=== PATIENT | male | born 1945 | race Caucasian/White ===

== ENCOUNTER 2016-11-07 09:34 | Outpatient (CLI) | payer MEDICARE | END 2016-11-07 09:35 | disposition home or self-care (01) | DX: E11.9 Type 2 diabetes mellitus without complications (principal); E78.9 Disorder of lipoprotein metabolism, unspecified; I10 Essential (primary) hypertension ==

== ENCOUNTER 2016-11-22 09:17 | Outpatient (CLI) | payer MEDICARE | END 2016-11-22 09:18 | disposition home or self-care (01) | DX: G47.33 Obstructive sleep apnea (adult) (pediatric) (principal) | CPT/HCPCS: 99213; G0463 ==

== ENCOUNTER 2017-05-15 08:00 | Outpatient (CLI) | payer MEDICARE ==
[2017-05-15 15:01] LABS: HEMOGLOBIN A1C 0.88 g/dL
[2017-05-15 17:02] LABS: ALBUMIN/GLOBULIN RATIO 1.5 (1.0-2.2); BILIRUBIN,TOTAL 0.8 mg/dL (0.2-1.0); BUN - BLOOD UREA NITROGEN 16 mg/dL (6-20); CALCIUM 9.6 mg/dL (8.5-10.3); CARBON DIOXIDE - CO2 26 mmol/L (21-32); CHLORIDE 104 mmol/L (101-111); CHOL/HDL RATIO 3.2 (<5.0); CHOLESTEROL 175 mg/dL; CREATININE 1.1 mg/dL (0.6-1.2); GFR - MDRD 66 (>89); GLUCOSE 164 mg/dL (70-100); HDL CHOLESTEROL 54 mg/dL; LDL/HDL RATIO 1.8 (<3.6); POTASSIUM 3.7 mmol/L (3.5-5.0); SODIUM 138 mmol/L (135-145); TOTAL PROTEIN 7.2 g/dL (6.7-8.2); TRIGLYCERIDES 129 mg/dL; VLDL CHOLESTEROL 26 mg/dL
== END 2017-05-15 23:59 | disposition home or self-care (01) ==
LOC: LAB.WCP 08:00
PROVIDERS: ATTEND Family Medicine
DX: E11.9 Type 2 diabetes mellitus without complications (principal); E78.9 Disorder of lipoprotein metabolism, unspecified; I10 Essential (primary) hypertension; Z12.5 Encounter for screening for malignant neoplasm of prostate
CPT/HCPCS: 36415; 80053; 80061; 82043; 83036; G0103; 84153

== ENCOUNTER 2017-08-07 08:00 | Outpatient (CLI) | payer MEDICARE ==
[2017-08-07 20:21] LABS: HEMOGLOBIN A1C 0.83 g/dL
== END 2017-08-07 08:01 | disposition home or self-care (01) ==
LOC: LAB.WCP 08:00
PROVIDERS: ATTEND Family Medicine
DX: E11.9 Type 2 diabetes mellitus without complications (principal); N52.9 Male erectile dysfunction, unspecified
CPT/HCPCS: 36415; 83036; 84403

== ENCOUNTER 2017-09-01 08:18 | Outpatient (CLI) | payer MEDICARE ==
--- NOTE | 2017-09-01 12:11 | Ultrasound Report ---
DATE OF SERVICE: 09/01/2017 AORTA ULTRASOUND AND IVC ULTRASOUND: 09/01/2017 INDICATION: Family history of abdominal aortic aneurysm. COMPARISON: Thoracic CT of 11/26/2015. TECHNIQUE: Duplex ultrasound of the abdominal aorta and IVC. FINDINGS: There are small, hard and soft plaques of the aorta. Aorta measurements: Proximal 2.7 cm. Mid 2.0 x 2.1 cm. Distal 2.2 x 2.0 cm. Right iliac artery 9 mm. Left iliac artery 1 cm. Peak systolic velocities in cm per second. Proximal aorta 85. Mid aorta 109. Distal aorta 114. Right common iliac artery 219. Left common iliac artery 196. The inferior vena cava has a grossly unremarkable appearance. IMPRESSION: 1. NO EVIDENCE OF ABDOMINAL AORTIC ANEURYSM. 2. SOMEWHAT INCREASED VELOCITIES OF THE COMMON ILIAC ARTERIES, NONSPECIFIC, BUT LIKELY REPRESENTS SOME DEGREE OF STENOSIS. TD: 09/01/2017 12:45 MTDD
== END 2017-09-01 08:19 | disposition home or self-care (01) ==
LOC: DI 08:18
PROVIDERS: ATTEND Family Medicine
DX: Z82.49 Family history of ischemic heart disease and other diseases of the circulatory system (principal)
CPT/HCPCS: 93978

== ENCOUNTER 2017-09-12 14:25 | Outpatient (CLI) | payer MEDICARE | END 2017-09-12 14:26 | disposition home or self-care (01) | LOC: LAB.WCP 14:25 | PROVIDERS: ATTEND Family Medicine | DX: N52.9 Male erectile dysfunction, unspecified (principal) | CPT/HCPCS: 36415; 84403 ==

== ENCOUNTER 2017-10-23 08:00 | Outpatient (CLI) | payer MEDICARE | END 2017-10-23 08:01 | disposition home or self-care (01) | LOC: LAB.WCP 08:00 | PROVIDERS: ATTEND Family Medicine | DX: N52.9 Male erectile dysfunction, unspecified (principal) | CPT/HCPCS: 36415; 84403 ==

== ENCOUNTER 2017-11-22 13:42 | Outpatient (CLI) | payer MEDICARE | END 2017-11-22 13:43 | disposition home or self-care (01) | LOC: SC 13:42 | PROVIDERS: ATTEND Nurse Practitioner Family | DX: G47.33 Obstructive sleep apnea (adult) (pediatric) (principal) | CPT/HCPCS: 99214; G0463; 99212 ==

== ENCOUNTER 2018-01-30 08:00 | Outpatient (CLI) | payer MEDICARE ==
[2018-01-30 13:15] LABS: ALBUMIN 3.8 g/dL (3.2-5.5); ALBUMIN/GLOBULIN RATIO 1.1 (1.0-2.2); ALKALINE PHOSPHATASE 47 IU/L (42-121); ALT ALANINE AMINOTRANSFERASE 39 IU/L (10-60); AST ASPARTATE AMINOTRANSFERASE 35 IU/L (10-42); BILIRUBIN,TOTAL 1.1 mg/dL (0.2-1.0); BUN - BLOOD UREA NITROGEN 13 mg/dL (6-20); CALCIUM 9.3 mg/dL (8.5-10.3); CARBON DIOXIDE - CO2 26 mmol/L (21-32); CHLORIDE 102 mmol/L (101-111); CHOL/HDL RATIO 3.8 (<5.0); CHOLESTEROL 137 mg/dL; CREATININE 1.3 mg/dL (0.6-1.2); GFR - MDRD 54 (>89); GLUCOSE 156 mg/dL (70-100); HDL CHOLESTEROL 36 mg/dL; LDL CHOLESTEROL,CALCULATED 54 mg/dL; LDL/HDL RATIO 1.5 (<3.6); SODIUM 135 mmol/L (135-145); TOTAL PROTEIN 7.2 g/dL (6.7-8.2); VLDL CHOLESTEROL 47 mg/dL
[2018-01-30 13:35] LABS: PSA FREE 0.696 ng/mL (0.16-2.81)
[2018-01-30 13:36] LABS: PSA TOTAL 3.7 ng/mL (0.000-2.000)
== END 2018-01-30 08:01 | disposition home or self-care (01) ==
LOC: LAB.WCP 08:00
PROVIDERS: ATTEND Family Medicine
DX: E29.1 Testicular hypofunction (principal); F41.8 Other specified anxiety disorders; E11.9 Type 2 diabetes mellitus without complications; E78.9 Disorder of lipoprotein metabolism, unspecified; I10 Essential (primary) hypertension; Z79.899 Other long term (current) drug therapy
CPT/HCPCS: 36415; 80053; 80061; 83721; 84154

== ENCOUNTER 2018-02-07 16:09 | Outpatient (CLI) | payer MEDICARE ==
[2018-02-07 19:51] LABS: HB2 TOTAL 16.9 g/dL; HEMOGLOBIN A1C 1.06 g/dL; HEMOGLOBIN A1C % 7.9 % (4.6-6.2)
== END 2018-02-07 16:10 | disposition home or self-care (01) ==
LOC: LAB.WCP 16:09
PROVIDERS: ATTEND Family Medicine
DX: E11.9 Type 2 diabetes mellitus without complications (principal)
CPT/HCPCS: 36415; 83036

== ENCOUNTER 2018-05-30 10:57 | Outpatient (CLI) | payer MEDICARE ==
[2018-05-30 18:57] LABS: CALCIUM 9.9 mg/dL (8.5-10.3); CREATININE 1.3 mg/dL (0.6-1.2)
[2018-05-30 19:07] LABS: HB2 TOTAL 18.8 g/dL; HEMOGLOBIN A1C 0.88 g/dL; HEMOGLOBIN A1C % 6.4 % (4.6-6.2)
== END 2018-05-30 10:58 | disposition home or self-care (01) ==
LOC: LAB.WCP 10:57
PROVIDERS: ATTEND Family Medicine
DX: E11.9 Type 2 diabetes mellitus without complications (principal); I10 Essential (primary) hypertension; E29.1 Testicular hypofunction; N52.9 Male erectile dysfunction, unspecified
CPT/HCPCS: 36415; 80048; 83036; 84403

== ENCOUNTER 2018-07-02 18:29 | Emergency (ER) | payer MEDICARE ==
--- NOTE | 2018-07-02 19:45 | ED Physician Documentation ---
History of Present Illness - Stated complaint Stated Complaint: OD INSULIN - Chief complaint Chief Complaint: General - History obtained from History obtained from: Patient, Family - History of Present Illness Timing: How many hours ago (2) Pain level max: 0 Pain level now: 0 Improved by: eating Worsened by: taking insulin - Additonal information Additional information: Patient states he accidentally took 48 units of Humalog instead of 48 units of Lantus. This was approximately 5-530 tonight. He ate afterwards. Currently asymptomatic. Review of Systems Constitutional: denies: Fever, Chills Cardiac: denies: Chest pain / pressure Respiratory: denies: Cough GI: denies: Vomiting, Diarrhea Skin: denies: Rash Musculoskeletal: denies: Neck pain, Back pain PD PAST MEDICAL HISTORY - Past Medical History Past Medical History: Yes Cardiovascular: Hypertension, High cholesterol Respiratory: COPD Neuro: None Endocrine/Autoimmune: Type 2 diabetes GI: GERD : None HEENT: None Psych: None Musculoskeletal: Osteoarthritis Derm: None - Past Surgical History Past Surgical History: Yes General: Appendectomy, Colonoscopy - Present Medications Home Medications: Ambulatory Orders Medication Instructions Recorded Confirmed Albuterol Sulfate 0.83 mg IH Q4H PRN 05/27/13 05/01/18 Aspirin [Aspir 81] 81 mg PO DAILY 05/27/13 05/01/18 Beclomethasone 40 Mcg [Qvar 40] 80 mcg INH BID 05/27/13 05/01/18 Metformin HCl [Glucophage] 500 mg PO BID 05/27/13 05/01/18 Simvastatin 40 mg PO QPM 05/27/13 05/01/18 Ascorbic Acid [Vitamin C] 500 mg PO DAILY 05/01/18 05/01/18 Beta Carotene 6,250 intlu PO DAILY 05/01/18 05/01/18 Garlic 1,000 mg PO DAILY 05/01/18 05/01/18 Insulin Glargine [Lantus Solostar] 48 unit SUBQ DAILY 05/01/18 05/01/18 Insulin Lispro [Humalog Kwikpen 10 unit SUBQ QDDINNER 05/01/18 05/01/18 U-100] Iron,Carbonyl [Iron Chews] 18 mg PO DAILY 05/01/18 05/01/18 Losartan Potassium 100 mg PO DAILY 05/01/18 05/01/18 Multivitamin [Multiple Vitamins] 1 each PO DAILY 05/01/18 05/01/18 [place]-3/Dha/Epa/Fish Oil [Fish Oil 1 each PO DAILY 05/01/18 05/01/18 500 mg Softgel] Salmeterol Xinafoate [Serevent 50 mcg IH BID 05/01/18 05/01/18 Diskus] Testosterone Cypionate 200 mg IM Q15D 05/01/18 05/01/18 Tiotropium [place] [Spiriva] 18 mcg IH DAILY 05/01/18 05/01/18 Vitamin E (Dl,Tocopheryl Acet) 200 unit PO DAILY 05/01/18 05/01/18 [Vitamin E] Zinc 22.5 mg PO DAILY 05/01/18 05/01/18 - Allergies Allergies/Adverse Reactions: Allergies Allergy/AdvReac Type Severity Reaction Status Date / Time No Known Drug Allergies Allergy Verified 05/27/13 08:41 - Social History Does the pt smoke?: No Smoking Status: Never smoker Does the pt drink ETOH?: Yes ETOH Use: Wine, Beer, Liquor Does the pt have substance abuse?: No - Immunizations Immunizations are current?: Yes - POLST Patient has POLST: No PD ED PE NORMAL - Vitals Vital signs reviewed: Yes - General General: Alert and oriented X 3, No acute distress - HEENT HEENT: Moist mucous membranes - Neck Neck: Supple, no meningeal sign - Cardiac Cardiac: RRR - Respiratory Respiratory: No respiratory distress, Clear bilaterally - Derm Derm: Warm and dry - Neuro Neuro: Alert and oriented X 3 Results - Vitals Vitals: Vital Signs - 24 hr 07/02/18 07/02/18 18:37 20:41 Temperature 36.3 C L 36.7 C Heart Rate 77 73 Respiratory 14 18 Rate Blood Pressure 154/57 H 154/88 H O2 Saturation 96 94 Oxygen O2 Source Room air - Labs Labs: Laboratory Tests 07/02/18 07/02/18 07/02/18 18:37 19:39 20:39 POC Whole Bld Glucose 186 H 229 H 216 H PD MEDICAL DECISION MAKING - ED course Complexity details: reviewed results, re-evaluated patient, considered differential, d/w patient, d/w family ED course: Patient is a 72-year-old male with an accidental Humalog today. Observed for greater than 3 hours after the incident with no hypoglycemia. We will have him decrease his insulin tonight of the Lantus and follow-up with his doctor. Patient counseled regarding signs and symptoms for which I believe and urgent re-evaluation would be necessary. Patient with good understanding of and agreement to plan and is comfortable going home at this time This document was made in part using voice recognition software. While efforts are made to proofread this document, sound alike and grammatical errors may occur. will be at home with him tonight Departure - Departure Disposition: Home, Self Care Clinical Impression: Insulin overdose Qualifiers: Encounter type: initial encounter Injury intent: accidental or unintentional Qualified Code(s): T38.3X1A - Poisoning by insulin and oral hypoglycemic [antidiabetic] drugs, accidental (unintentional), initial encounter Condition: Good Instructions: ED Overdose Accidental Follow-Up: Navdeep Payne MD [Primary Care Provider] - Within 1 week Comments: Return if you worsen. Someone should stay with you tonight. Decrease your lantus to 30 units tonight Discharge Date/Time: 07/02/18 20:45
[2018-07-02 20:41] VITALS: BP 154/88
== END 2018-07-02 20:45 | disposition home or self-care (01) ==
LOC: ED 18:29
DX: T38.3X1A Poisoning by insulin and oral hypoglycemic [antidiabetic] drugs, accidental (unintentional), initial encounter (principal); I10 Essential (primary) hypertension; E11.9 Type 2 diabetes mellitus without complications; Z79.4 Long term (current) use of insulin; Z79.82 Long term (current) use of aspirin
CPT/HCPCS: 99283

== ENCOUNTER 2018-08-09 11:37 | Day surgery (SDC) | payer MEDICARE ==
--- NOTE | 2018-08-09 12:10 | ANESTHESIA ---
Pre-Anesthesia VS, & Labs <Yuridia Granda - Last Filed: 08/09/18 12:08> - NPO >8 hours Last Fluid Intake: 0940 CL <Ely Muro - Last Filed: 08/09/18 13:00> - Diagnosis History of colon polyps (Yuridia Granda) History of colon polyps (Ely Muro) - Procedure colonoscopy (Yuridia Granda) colonoscopy (Ely Muro) Vital Signs: Temp Pulse Resp BP Pulse Ox 36.2 C L 55 L 16 150/80 H 95 08/09/18 12:02 08/09/18 12:02 08/09/18 12:02 08/09/18 12:02 08/09/18 12:02 Height 5 ft 10 in Weight (kg) 98.3 kg Body Mass Index 30.2 - Lab Results Current Lab Results: Laboratory Tests 08/09/18 12:04: POC Whole Bld Glucose 121 H Home Medications and Allergies <Yuridia Granda - Last Filed: 08/09/18 12:08> <Ely Muro - Last Filed: 08/09/18 13:00> Home Medications: Ambulatory Orders Hydrochlorothiazide 12.5 mg PO DAILY 08/08/18 Metoprolol Succinate 150 mg PO DAILY 08/08/18 Aspirin [Aspir 81] 81 mg PO DAILY 05/27/13 Metformin HCl [Glucophage] 500 mg PO BID 05/27/13 Simvastatin 40 mg PO QPM 05/27/13 Ascorbic Acid [Vitamin C] 500 mg PO DAILY 05/01/18 Beta Carotene 6,250 intlu PO DAILY 05/01/18 Garlic 1,000 mg PO DAILY 05/01/18 Insulin Glargine [Lantus Solostar] 48 unit SUBQ DAILY 05/01/18 Insulin Lispro [Humalog Kwikpen U-100] 10 unit SUBQ QDDINNER 05/01/18 Iron,Carbonyl [Iron Chews] 18 mg PO DAILY 05/01/18 Losartan Potassium 100 mg PO DAILY 05/01/18 Multivitamin [Multiple Vitamins] 1 each PO DAILY 05/01/18 [place]-3/Dha/Epa/Fish Oil [Fish Oil 500 mg Softgel] 1 each PO DAILY 05/01/18 Testosterone Cypionate 200 mg IM Q15D 05/01/18 Tiotropium [place] [Spiriva] 18 mcg IH DAILY 05/01/18 Vitamin E (Dl,Tocopheryl Acet) [Vitamin E] 200 unit PO DAILY 05/01/18 Zinc 22.5 mg PO DAILY 05/01/18 Hydrochlorothiazide 12.5 mg PO DAILY 08/08/18 Metoprolol Succinate 150 mg PO DAILY 08/08/18 Allergies/Adverse Reactions: Allergies Allergy/AdvReac Type Severity Reaction Status Date / Time No Known Drug Allergies Allergy Verified 05/27/13 08:41 Anes History & Medical History - Medical History Cardiovascular: reports: Hypertension, High cholesterol Pulmonary: reports: COPD, Sleep apnea, CPAP use Gastrointestinal: reports: Colon polyps Urinary: reports: None Neuro: reports: None Musculoskeletal: reports: Osteoarthritis Endocrine/Autoimmune: reports: Type 2 diabetes Blood Disorders: reports: None Smoking Status: Never smoker Psychosocial: reports: Alcohol (Glass of wine or cocktail every night) - Surgical History General: Appendectomy, Colonoscopy Eyes Ears Nose Throat (EENT): Cataracts <Yuridia Granda Last Filed: 08/09/18 12:08> - Anesthetic History Anesthesia Complications: reports: No previous complications <Ely Muro - Last Filed: 08/09/18 13:00> Exam General: Alert, Oriented x3, Cooperative, No acute distress Dental: WNL Mouth Openin Fingerbreadth Neck Mobility: Normal Mallampati classification: III Thyromental Distance: 4-6 cm Respiratory: Lungs clear, Normal breath sounds, No respiratory distress, No accessory muscle use Cardiovascular: Regular rate, Normal S1, Normal S2, No murmurs Mental/Cognitive Status: Alert/Oriented X3, Normal for patient <Ely Muro - Last Filed: 08/09/18 13:00> Plan Anesthesia Type: MAC Consent for Procedure(s) Verified and Reviewed: Yes Code Status: Attempt Resuscitation ASA classification: 3-Severe systemic disease Is this case an emergency?: No <Yuridia Granda Last Filed: 08/09/18 12:08>
[2018-08-09] MEDS ORDERED: LACTATED RINGERS 1,000 ML IV ONE (12:19)
[2018-08-09] MEDS ORDERED: PROPOFOL 200 MG/20 ML VIAL IVP ONE (13:56)
[2018-08-09 14:19] VITALS: BP 129/57
== END 2018-08-09 11:38 | disposition home or self-care (01) ==
LOC: SDS 11:37
PROVIDERS: ATTEND Internal Medicine Gastroenterology
PROC: 0DBL8ZZ Excision of Transverse Colon, Via Natural or Artificial Opening Endoscopic (ICD-10-PCS; 2018-08-09)
PROC: 0DBM8ZZ Excision of Descending Colon, Via Natural or Artificial Opening Endoscopic (ICD-10-PCS; 2018-08-09)
PROC: 0DBM8ZZ Excision of Descending Colon, Via Natural or Artificial Opening Endoscopic (ICD-10-PCS; principal; 2018-08-09 12:45)
DX: Z12.11 Encounter for screening for malignant neoplasm of colon (principal); D12.4 Benign neoplasm of descending colon; D12.3 Benign neoplasm of transverse colon; K57.30 Diverticulosis of large intestine without perforation or abscess without bleeding; G47.30 Sleep apnea, unspecified; E11.9 Type 2 diabetes mellitus without complications; Z79.4 Long term (current) use of insulin; E78.5 Hyperlipidemia, unspecified; J44.9 Chronic obstructive pulmonary disease, unspecified; Z87.891 Personal history of nicotine dependence; E66.9 Obesity, unspecified; Z68.31 Body mass index [BMI] 31.0-31.9, adult; I10 Essential (primary) hypertension
CPT/HCPCS: 45380; 45385; J7120

== ENCOUNTER 2018-11-27 09:17 | Outpatient (CLI) | payer MEDICARE ==
[2018-11-27 12:56] LABS: PSA FREE 0.96 ng/mL (0.16-2.81)
[2018-11-27 12:57] LABS: HB2 TOTAL 18.9 g/dL; HEMOGLOBIN A1C 0.75 g/dL; HEMOGLOBIN A1C % 5.8 % (4.6-6.2); PSA TOTAL 3.15 ng/mL (0.000-2.000)
[2018-11-27 13:05] LABS: ALBUMIN 4.3 g/dL (3.2-5.5); ALBUMIN/GLOBULIN RATIO 1.4 (1.0-2.2); ALKALINE PHOSPHATASE 43 IU/L (42-121); ALT ALANINE AMINOTRANSFERASE 48 IU/L (10-60); AST ASPARTATE AMINOTRANSFERASE 42 IU/L (10-42); BILIRUBIN,TOTAL 0.9 mg/dL (0.2-1.0); BUN - BLOOD UREA NITROGEN 18 mg/dL (6-20); CALCIUM 9.9 mg/dL (8.5-10.3); CARBON DIOXIDE - CO2 28 mmol/L (21-32); CHLORIDE 102 mmol/L (101-111); CHOL/HDL RATIO 4.1 (<5.0); CHOLESTEROL 147 mg/dL; CREATININE 1.4 mg/dL (0.6-1.2); GFR - MDRD 50 (>89); GLUCOSE 83 mg/dL (70-100); HDL CHOLESTEROL 36 mg/dL; LDL CHOLESTEROL,CALCULATED 73 mg/dL; SODIUM 138 mmol/L (135-145); TOTAL PROTEIN 7.4 g/dL (6.7-8.2); VLDL CHOLESTEROL 38 mg/dL
== END 2018-11-27 23:59 | disposition home or self-care (01) ==
LOC: LAB.WCP 09:17
PROVIDERS: ATTEND Family Medicine
DX: E78.5 Hyperlipidemia, unspecified (principal); I10 Essential (primary) hypertension; E11.9 Type 2 diabetes mellitus without complications; R97.20 Elevated prostate specific antigen [PSA]; E29.1 Testicular hypofunction
CPT/HCPCS: 36415; 80053; 80061; 83036; 83721; 84153; 84154; 84403

== ENCOUNTER 2018-11-28 10:16 | Outpatient (CLI) | payer MEDICARE | END 2018-11-28 10:17 | disposition home or self-care (01) | LOC: SC 10:16 | PROVIDERS: ATTEND Nurse Practitioner Family | DX: G47.33 Obstructive sleep apnea (adult) (pediatric) (principal) | CPT/HCPCS: 99214; G0463; 99212 ==

== ENCOUNTER 2018-12-14 15:50 | Outpatient (CLI) | payer MEDICARE ==
--- NOTE | 2018-12-16 08:24 | XRAY Report ---
Reason: FINGER PAIN,RIGHT, OSTEOARTHRITIS,KNEE Procedure Date: 12/14/2018 Accession Number: [id number] / [id number] Procedure: WCP - Finger(s) RT CPT Code: FULL RESULT: EXAM: RIGHT SECOND DIGIT RADIOGRAPHY EXAM DATE: 12/14/2018 04:02 PM. CLINICAL HISTORY: FINGER PAIN,RIGHT, OSTEOARTHRITIS,KNEE. COMPARISON: None. TECHNIQUE: 3 views. FINDINGS: Bones: Normal. No fracture or bone lesion. Joints: No subluxation. Mild right second DIP joint space narrowing. Soft Tissues: Mild right second finger soft tissue swelling noted. No radiopaque foreign bodies are noted. IMPRESSION: 1. No fracture or malalignment. 2. Mild right second DIP joint arthritis. 3. Mild right second finger swelling. RADIA
--- NOTE | 2018-12-16 08:30 | XRAY Report ---
Reason: FINGER PAIN,RIGHT, OSTEOARTHRITIS,KNEE Procedure Date: 12/14/2018 Accession Number: [id number] / [id number] Procedure: WCP - Knee 3 View LT CPT Code: FULL RESULT: EXAM: LEFT KNEE RADIOGRAPHY EXAM DATE: 12/14/2018 04:02 PM. CLINICAL HISTORY: FINGER PAIN,RIGHT, OSTEOARTHRITIS,KNEE. COMPARISON: 04/15/2013. TECHNIQUE: 3 views. FINDINGS: Bones: Normal. No fractures or bone lesions. Joints: Moderate medial compartment narrowing, osteophytosis, and subchondral sclerosis. Mild patellofemoral compartment narrowing, osteophytosis, and subchondral sclerosis. Mild lateral compartment narrowing, osteophytosis, and subchondral sclerosis. No effusions. Normal alignment. Soft Tissues: Normal. No soft tissue swelling. IMPRESSION: 1. No fracture or malalignment. 2. No knee joint effusion. 3. If patient remains symptomatic, recommend radiographs in 10-14 days. 4. Moderate left medial and mild left lateral and patellofemoral compartment arthritis. Kellgren Rodriguez Grade 3. Kellgren and Rodriguez classification of osteoarthritis: Grade 0: no radiographic features of osteoarthritis are present Grade 1: doubtful joint space narrowing (JSN) and possible osteophytic lipping Grade 2: definite osteophytes and possible JSN on anteroposterior weight-bearing radiograph Grade 3: multiple osteophytes, definite JSN, sclerosis, possible bony deformity Grade 4: large osteophytes, marked JSN, severe sclerosis and definite bony deformity RADIA
== END 2018-12-14 15:51 | disposition home or self-care (01) ==
LOC: DI.WCP 15:50
PROVIDERS: ATTEND Family Medicine
DX: M19.041 Primary osteoarthritis, right hand (principal); M17.12 Unilateral primary osteoarthritis, left knee
CPT/HCPCS: 73140

== ENCOUNTER 2019-01-16 11:06 | Outpatient (CLI) | payer MEDICARE | END 2019-01-16 11:07 | disposition home or self-care (01) | LOC: SC 11:06 | PROVIDERS: ATTEND Nurse Practitioner Family | DX: G47.33 Obstructive sleep apnea (adult) (pediatric) (principal) | CPT/HCPCS: 99213; G0463; 99212 ==

== ENCOUNTER 2019-01-24 08:00 | Outpatient (CLI) | payer MEDICARE ==
[2019-01-24 19:01] LABS: ALBUMIN 4.1 g/dL (3.2-5.5); ALBUMIN/GLOBULIN RATIO 1.4 (1.0-2.2); BILIRUBIN,TOTAL 0.6 mg/dL (0.2-1.0); CALCIUM 9.6 mg/dL (8.5-10.3); CREATININE 1.3 mg/dL (0.6-1.2)
[2019-01-24 19:44] LABS: PSA FREE 1.05 ng/mL (0.16-2.81)
[2019-01-24 19:45] LABS: PSA TOTAL 3.16 ng/mL (0.000-2.000)
== END 2019-01-24 23:59 | disposition home or self-care (01) ==
LOC: LAB.WCP 08:00
PROVIDERS: ATTEND Family Medicine
DX: E29.1 Testicular hypofunction (principal); R97.20 Elevated prostate specific antigen [PSA]
CPT/HCPCS: 36415; 80053; 84153; 84154; 84403

== ENCOUNTER 2019-05-21 08:00 | Outpatient (CLI) | payer MEDICARE ==
[2019-05-21 12:23] LABS: BUN - BLOOD UREA NITROGEN 17 mg/dL (6-20); CALCIUM 9.4 mg/dL (8.5-10.3); CARBON DIOXIDE - CO2 29 mmol/L (21-32); CHLORIDE 102 mmol/L (101-111); CHOL/HDL RATIO 4.5 (<5.0); CHOLESTEROL 144 mg/dL; CREATININE 1.4 mg/dL (0.6-1.2); GFR - MDRD 50 (>89); GLUCOSE 131 mg/dL (70-100); HDL CHOLESTEROL 32 mg/dL; LDL CHOLESTEROL,CALCULATED 70 mg/dL; LDL/HDL RATIO 2.2 (<3.6); SODIUM 138 mmol/L (135-145); VLDL CHOLESTEROL 42 mg/dL
[2019-05-21 12:24] LABS: CREATININE,URINE 142.3 mg/dL; MICROALBUMIN,URINE 11.1 mg/dL (0-300.0)
[2019-05-21 12:32] LABS: PSA FREE 1.155 ng/mL (0.16-2.81)
[2019-05-21 12:33] LABS: PSA TOTAL 3.777 ng/mL (0.000-2.000)
[2019-05-21 13:02] LABS: HB2 TOTAL 17.1 g/dL; HEMOGLOBIN A1C 0.72 g/dL
== END 2019-05-21 08:01 | disposition home or self-care (01) ==
LOC: LAB.WCP 08:00
PROVIDERS: ATTEND Family Medicine
DX: E78.5 Hyperlipidemia, unspecified (principal); E29.1 Testicular hypofunction; E11.9 Type 2 diabetes mellitus without complications
CPT/HCPCS: 36415; 80048; 80061; 81599; 82043; 82570; 83036; 83721; 84153; 84154; 84402; 84403

== ENCOUNTER 2019-05-24 11:11 | Outpatient (CLI) | payer MEDICARE | END 2019-05-24 11:20 | disposition home or self-care (01) | LOC: LAB.N 11:11 | PROVIDERS: ATTEND Family Medicine | DX: E29.1 Testicular hypofunction (principal) | CPT/HCPCS: 36415; 84403 ==

== ENCOUNTER 2019-09-05 16:14 | Outpatient (CLI) | payer MEDICARE ==
[2019-09-05 16:31] LABS: BASOPHILS # (AUTO) 0.1 10^3/uL (0.0-0.1); BASOPHILS % (AUTO) 0.5 %; EOSINOPHILS # (AUTO) 0.1 10^3/uL (0.0-0.7); EOSINOPHILS % (AUTO) 0.4 %; HGB - HEMOGLOBIN 16.2 g/dL (14.0-18.0); LYMPHOCYTES # (AUTO) 1.6 10^3/uL (1.5-3.5); LYMPHOCYTES % (AUTO) 8.9 %; MEAN CORPUSCULAR HEMOGLOBIN 34.2 pg (27.0-31.0); MEAN CORPUSCULAR VOLUME 97.9 fL (80.0-94.0); MEAN PLATELET VOLUME 10.8 fL (7.4-11.4); MONOCYTES # (AUTO) 1.5 10^3/uL (0.0-1.0); MONOCYTES % (AUTO) 8.4 %; NEUTROPHILS # (AUTO) 14.3 10^3/uL (1.5-6.6); NEUTROPHILS % (AUTO) 81.2 %; PLT - PLATELET COUNT 150 10^3/uL (130-450); RED BLOOD COUNT 4.73 10^6/uL (4.70-6.10); RED CELL DISTRIBUTION WIDTH 13.6 % (12.0-15.0); WHITE BLOOD COUNT 17.6 x10^3/uL (4.8-10.8)
[2019-09-05 16:46] LABS: ALBUMIN 4.2 g/dL (3.2-5.5); ALBUMIN/GLOBULIN RATIO 1.3 (1.0-2.2); BILIRUBIN,TOTAL 1.1 mg/dL (0.2-1.0); CREATININE 1.5 mg/dL (0.6-1.2); TOTAL PROTEIN 7.5 g/dL (6.7-8.2)
--- NOTE | 2019-09-06 08:17 | XRAY Report ---
Reason: FEVER Procedure Date: 09/05/2019 Accession Number: [id number] / [id number] Procedure: XR - Chest 2 View X-Ray CPT Code: 40527 Final Report FULL RESULT: EXAM: CHEST RADIOGRAPHY EXAM DATE: 09/05/2019 04:44 PM. CLINICAL HISTORY: FEVER. COMPARISON: None. TECHNIQUE: 2 views. FINDINGS: Lungs/Pleura: Left basilar atelectasis or infiltrate. No pleural effusion. No pneumothorax. Normal volumes. Mediastinum: Heart and mediastinal contours are unremarkable. Other: DISH spine. IMPRESSION: Left basilar atelectasis or infiltrate. RADIA
== END 2019-09-05 16:15 | disposition home or self-care (01) ==
LOC: LAB 16:14 → DI 16:15
PROVIDERS: ATTEND Family Medicine
DX: R91.8 Other nonspecific abnormal finding of lung field (principal)
CPT/HCPCS: 36415; 71046; 80053; 85025; 87275; 87276

== ENCOUNTER 2019-09-06 13:52 | Outpatient (CLI) | payer MEDICARE | END 2019-09-06 23:59 | disposition home or self-care (01) | LOC: LAB.N 13:52 | PROVIDERS: ATTEND Family Medicine | DX: R39.11 Hesitancy of micturition (principal) | CPT/HCPCS: 36415; 87077; 87086; 87181; G0103; 84153 ==

== ENCOUNTER 2019-11-05 07:00 | Outpatient (CLI) | payer MEDICARE ==
[2019-11-05 11:53] LABS: BASOPHILS # (AUTO) 0.1 10^3/uL (0.0-0.1); BASOPHILS % (AUTO) 0.8 %; EOSINOPHILS # (AUTO) 0.3 10^3/uL (0.0-0.7); EOSINOPHILS % (AUTO) 3.9 %; HGB - HEMOGLOBIN 17.6 g/dL (14.0-18.0); LYMPHOCYTES # (AUTO) 2.1 10^3/uL (1.5-3.5); LYMPHOCYTES % (AUTO) 24.8 %; MEAN CORPUSCULAR HEMOGLOBIN 32.8 pg (27.0-31.0); MEAN CORPUSCULAR VOLUME 96.5 fL (80.0-94.0); MEAN PLATELET VOLUME 11.4 fL (7.4-11.4); MONOCYTES # (AUTO) 0.8 10^3/uL (0.0-1.0); NEUTROPHILS # (AUTO) 5.1 10^3/uL (1.5-6.6); PLT - PLATELET COUNT 165 10^3/uL (130-450); RED BLOOD COUNT 5.36 10^6/uL (4.70-6.10); RED CELL DISTRIBUTION WIDTH 13.8 % (12.0-15.0); WHITE BLOOD COUNT 8.4 x10^3/uL (4.8-10.8)
[2019-11-05 12:11] LABS: ALBUMIN 4.2 g/dL (3.2-5.5); ALBUMIN/GLOBULIN RATIO 1.4 (1.0-2.2); BILIRUBIN,TOTAL 0.6 mg/dL (0.2-1.0); CREATININE 1.4 mg/dL (0.6-1.2); TOTAL PROTEIN 7.2 g/dL (6.7-8.2)
[2019-11-05 12:24] LABS: PSA TOTAL 4.187 ng/mL (0.000-2.000)
[2019-11-05 12:32] LABS: CREATININE,URINE 137.9 mg/dL; PROTEIN/CREATININE RATIO,URINE 0.2 (<=0.2)
[2019-11-05 12:48] LABS: HB2 TOTAL 18.1 g/dL; HEMOGLOBIN A1C 0.74 g/dL; HEMOGLOBIN A1C % 5.9 % (4.6-6.2)
== END 2019-11-05 23:59 | disposition home or self-care (01) ==
LOC: LAB.N 07:00
PROVIDERS: ATTEND Family Medicine
DX: E29.1 Testicular hypofunction (principal); E11.9 Type 2 diabetes mellitus without complications; I10 Essential (primary) hypertension; N40.0 Benign prostatic hyperplasia without lower urinary tract symptoms; N13.8 Other obstructive and reflux uropathy
CPT/HCPCS: 36415; 80053; 82570; 83036; 84153; 84156; 84403; 85025

== ENCOUNTER 2020-01-01 10:03 | Outpatient (CLI) | payer MEDICARE ==
--- NOTE | 2020-01-01 09:55 | SLEEP CARE CONSULTATION ---
Information from patient questionnaire entered by Heydi Garza. I have reviewed and concur with the information entered by Heydi Garza. This document represents the service I personally performed and the decisions made by me, Emilee Dove, RN, MSN, DOCTOR OF AUDIOLOGY. History of Present Illness Service Date and Time: 01/01/2020929 Previous diagnosis: Mild, Obstructive Sleep Apnea-Hypopnea Syndrome AHI: 11.7 Reason for follow up: annual Equipment type: CPAP Equipment obtained from: [employer] (getting supplies as needed) Mask style: Nasal Mask brand: [employer] (Eson) Backup mask available: Yes (old mask ) Last cushion change: a month CPAP Compliance Data - Data Reviewed with Patient Average duration of nightly device use: 8h 2m Compliance rate %: 99.4 Current pressure setting (cmH2O): 7 Humidity settin Heated hose settin Average residual AHI: 0.8 Average large leak: 0s Subjective Patient concerns: reports: dry mouth, nose, throat (sometimes he has dry nose/ he usually has a dry mouth so - uses Xylimelts). denies: aerophagia, mask discomfort, air blowing in eyes, mask leak noise, condensation in mask/hose, nasal congestion, epistaxis Observed to snore while using device: Yes (rare) Current pressure setting perceived as: comfortable On therapy, patient: reports: sleeping better, more rested overall. denies: drowsiness while driving, other Initial [place] Sleepiness Scale score: 8 Physical Exam Height: 5 ft 10 in Impression and Plan 1. Obstructive Sleep Apnea-Hypopnea Syndrome, mild, with good treatment compliance and good apnea control. On CPAP therapy, the patient has better sleep quality and is more rested overall. He states he has never been a morning person and has never felt more refreshed with sleep no matter what he has tried. For intermittent nasal dryness and chronic mild oral dryness, I advised lowering the heated hose to increase moisture with rationale discussed. Verbal instruction given and questions answered. He can check his manual for directions and or call [employer] to walk through process of changing his heated hose setting if needed. His oral dryness is not due to mask leaks as there are none so it appears he only needs to find the right setting of humidity and heated hose for his environment. Patient's apnea severity and rationale for treatment to reduce apnea, improve sleep quality and reduce cardiovascular and cerebrovascular events was reviewed. I also reviewed the benefit of consistent device use of CPAP for hypertension, diabetes. I also discussed how weight can affect his apnea and CPAP pressure requirements and symptoms to report for pressure adjustment. * Continue CPAP pressure at 7 cmH2O * Lower heated hose * Notify me if snoring with mask or feeling that the pressure is too much or too little * Call this office if any problems using CPAP * Return for follow up in 1 year , or sooner if concerns arise Visit Type: Telehealth Phone (to minimize Covid 19 risk exposure) Patient Location: Home Location of Provider: Home Patient agrees and consents to this telehealth visit type: Yes Patient agrees to have their insurance billed: Yes Time Spent with Patient (minutes): 10 Provider Statement: I spent 100% of the Telehealth Phone Call with the patient with greater than 50% spent counseling the patient and coordination of care.
== END 2020-01-01 10:04 | disposition home or self-care (01) ==
LOC: SC 10:03
PROVIDERS: ATTEND Nurse Practitioner Family
DX: G47.33 Obstructive sleep apnea (adult) (pediatric) (principal)

== ENCOUNTER 2020-04-28 09:35 | Outpatient (CLI) | payer MEDICARE ==
[2020-04-28 12:40] LABS: CREATININE,URINE 98.9 mg/dL; MICROALBUM/CREATININE RATIO,UR 107.2 ug/mg (<30.0); MICROALBUMIN,URINE 10.6 mg/dL (0-300.0)
[2020-04-28 12:58] LABS: BUN - BLOOD UREA NITROGEN 17 mg/dL (6-20); CALCIUM 9.8 mg/dL (8.5-10.3); CARBON DIOXIDE - CO2 27 mmol/L (21-32); CHLORIDE 101 mmol/L (101-111); CHOL/HDL RATIO 4.3 (<5.0); CHOLESTEROL 149 mg/dL; CREATININE 1.4 mg/dL (0.6-1.2); GLUCOSE 82 mg/dL (70-100); HDL CHOLESTEROL 35 mg/dL; LDL CHOLESTEROL,CALCULATED 76 mg/dL; LDL/HDL RATIO 2.2 (<3.6); SODIUM 136 mmol/L (135-145); VLDL CHOLESTEROL 38 mg/dL
== END 2020-04-28 23:59 | disposition home or self-care (01) ==
LOC: LAB.WCP 09:35
PROVIDERS: ATTEND Family Medicine
DX: E11.9 Type 2 diabetes mellitus without complications (principal); E29.1 Testicular hypofunction
CPT/HCPCS: 36415; 80048; 80061; 81599; 82043; 82570; 83036; 83721; 84402; 84403

== ENCOUNTER 2020-07-24 07:57 | Outpatient (CLI) | payer MEDICARE ==
--- NOTE | 2020-07-24 11:03 | Ultrasound Report ---
PROCEDURE: Atherosclerotic INDICATIONS: Bilateral claudication TECHNIQUE: Color and pulse Doppler interrogation was performed of the aorta and iliac arterial systems, with julien ge documentation. COMPARISON: 09/01/2017 FINDINGS: Aorta: The aorta is nonaneurysmal. Peak systolic velocity in the aorta is 125 cm/s, with biphasic wa veform. Moderate narrowing due to atherosclerotic plaque is seen in the distal aorta near the bifurca tion. Multifocal mild to moderate stenosis is seen in the proximal and mid aorta. Right lower extremity: Proximal common iliac artery: 243cm/sec, with triphasic flow. Distal common iliac artery: 216 cm/sec, with triphasic flow. Proximal external iliac artery: 187 cm/sec, with monophasic flow. Distal external iliac artery: 108 cm/sec, with monophasic flow. Common femoral artery: 158 cm/sec, with triphasic flow. [place]-scale imaging description: Moderate atherosclerotic narrowing of the common iliac artery. Left lower extremity: Proximal common iliac artery: 267 cm/sec, with monophasic flow. Distal common iliac artery: 266 cm/sec, with monophasic flow. Proximal external iliac artery: 100 cm/sec, with monophasic flow. Distal external iliac artery: 104 cm/sec, with monophasic flow. Common femoral artery: 7 cm/sec, with monophasic flow. [place]-scale imaging description: Moderate atherosclerotic narrowing of the common iliac artery. 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 Monophasic waveforms in the external iliac arteries bilaterally, and in the common iliac artery on t he left, suggestive of significant flow limitation. Findings have progressed since the comparison exa mination performed August 2017. CT angiogram of the aorta with runoff to the bilateral lower extremi ties could be considered for more comprehensive evaluation. Reviewed by: Johnny Mc MD on 07/24/2020 11:02 AM PST Approved by: Johnny Mc MD on 07/24/2020 11:02 AM PST Station ID: [id number]
== END 2020-07-24 07:58 | disposition home or self-care (01) ==
LOC: DI 07:57
PROVIDERS: ATTEND Internal Medicine
DX: I70.0 Atherosclerosis of aorta (principal); I70.293 Other atherosclerosis of native arteries of extremities, bilateral legs
CPT/HCPCS: 93978

== ENCOUNTER 2020-07-30 08:00 | Outpatient (CLI) | payer MEDICARE ==
--- NOTE | 2020-07-30 14:57 | XRAY Report ---
PROCEDURE: Hip BILAT INDICATIONS: BILATERAL HIP PAIN TECHNIQUE: 3 views of the hip were acquired. COMPARISON: None. FINDINGS: Bones: No fractures or dislocations. No suspicious bony lesions. The visualized pelvic ring appear s intact. Bilateral hip joint degeneration, moderate on the right and mild on the left. There is mil d sacroiliac joint degeneration bilaterally. Severe lower lumbar spine disc and facet degeneration. Soft tissues: No suspicious soft tissue calcifications or masses. IMPRESSION: 1. There is degenerative joint disease in hips bilaterally, moderate on the right and mild on the lef t. 2. Mild sacroiliac joint degeneration bilaterally. 3. Severe degenerative disc and facet disease in the lower lumbar spine. Reviewed by: Nessa Allred MD on 07/30/2020 2:56 PM PST Approved by: Nessa Allred MD on 07/30/2020 2:56 PM PST Station ID: [id number]
== END 2020-07-30 23:59 | disposition home or self-care (01) ==
LOC: DI.WCP 08:00
PROVIDERS: ATTEND Internal Medicine
DX: M16.0 Bilateral primary osteoarthritis of hip (principal); M51.36 Other intervertebral disc degeneration, lumbar region; M47.818 Spondylosis without myelopathy or radiculopathy, sacral and sacrococcygeal region
CPT/HCPCS: 73521

== ENCOUNTER 2020-10-02 07:15 | Day surgery (SDC) | payer MEDICARE ==
[2020-10-02] MEDS ORDERED: LACTATED RINGERS 1,000 ML IV ONE ×2 (07:52→08:43)
[2020-10-02] MEDS ORDERED: MIDAZOLAM 2 MG/2 ML VIAL ONE ×2 (08:08→09:14)
[2020-10-02] MEDS ORDERED: fentaNYL 250 MCG/5 ML VIAL ONE (08:09)
[2020-10-02 09:16] VITALS: BP 117/53
== END 2020-10-02 07:16 | disposition home or self-care (01) ==
LOC: SDS 07:15
PROVIDERS: ATTEND Surgery
PROC: 0DBP8ZZ Excision of Rectum, Via Natural or Artificial Opening Endoscopic (ICD-10-PCS; principal; 2020-10-02 08:30)
DX: Z12.11 Encounter for screening for malignant neoplasm of colon (principal); D12.8 Benign neoplasm of rectum; K57.30 Diverticulosis of large intestine without perforation or abscess without bleeding; E11.51 Type 2 diabetes mellitus with diabetic peripheral angiopathy without gangrene; Z79.4 Long term (current) use of insulin; I10 Essential (primary) hypertension; G47.30 Sleep apnea, unspecified; J44.9 Chronic obstructive pulmonary disease, unspecified; Z87.891 Personal history of nicotine dependence
CPT/HCPCS: 45380; J3010; J7120

== ENCOUNTER 2020-10-27 08:00 | Outpatient (CLI) | payer MEDICARE ==
[2020-10-27 18:22] LABS: ALBUMIN 4.5 g/dL (3.2-5.5); BILIRUBIN,DIRECT 0.1 mg/dL (0.1-0.5); CREATININE 1.2 mg/dL (0.6-1.2); TOTAL PROTEIN 6.8 g/dL (6.7-8.2)
== END 2020-10-27 08:01 | disposition home or self-care (01) ==
LOC: LAB.WCP 08:00
PROVIDERS: ATTEND Nurse Practitioner Family
DX: B35.1 Tinea unguium (principal); Z79.899 Other long term (current) drug therapy
CPT/HCPCS: 36415; 80076; 82565; 84520

== ENCOUNTER 2020-11-09 08:00 | Outpatient (CLI) | payer MEDICARE ==
[2020-11-09 18:26] LABS: BASOPHILS % (AUTO) 0.4 %; EOSINOPHILS # (AUTO) 0.3 10^3/uL (0.0-0.7); EOSINOPHILS % (AUTO) 4.5 %; HCT - HEMATOCRIT 44.1 % (42.0-52.0); LYMPHOCYTES # (AUTO) 1.8 10^3/uL (1.5-3.5); LYMPHOCYTES % (AUTO) 26.1 %; MEAN PLATELET VOLUME 10.9 fL (7.4-11.4); MONOCYTES # (AUTO) 0.5 10^3/uL (0.0-1.0); MONOCYTES % (AUTO) 7.7 %; NEUTROPHILS # (AUTO) 4.1 10^3/uL (1.5-6.6); NEUTROPHILS % (AUTO) 60.9 %; PLT - PLATELET COUNT 186 10^3/uL (130-450); RED BLOOD COUNT 4.41 10^6/uL (4.70-6.10); RED CELL DISTRIBUTION WIDTH 13.5 % (12.0-15.0); WHITE BLOOD COUNT 6.7 x10^3/uL (4.8-10.8)
[2020-11-09 18:41] LABS: ALBUMIN 4.3 g/dL (3.2-5.5); ALBUMIN/GLOBULIN RATIO 1.4 (1.0-2.2); ALKALINE PHOSPHATASE 45 IU/L (42-121); ALT ALANINE AMINOTRANSFERASE 33 IU/L (10-60); AST ASPARTATE AMINOTRANSFERASE 30 IU/L (10-42); BILIRUBIN,TOTAL 0.8 mg/dL (0.2-1.0); BUN - BLOOD UREA NITROGEN 16 mg/dL (6-20); CALCIUM 9.7 mg/dL (8.5-10.3); CARBON DIOXIDE - CO2 24 mmol/L (21-32); CHLORIDE 98 mmol/L (101-111); CHOL/HDL RATIO 4.3 (<5.0); CHOLESTEROL 159 mg/dL; CREATININE 1.3 mg/dL (0.6-1.2); ESTIMATED AVERAGE GLUCOSE 111 mg/dL (70-100); GFR - MDRD 54 (>89); GLUCOSE 111 mg/dL (70-100); HDL CHOLESTEROL 37 mg/dL; HEMOGLOBIN A1c% 5.5 % (4.27-6.07); LDL CHOLESTEROL,CALCULATED 83 mg/dL; LDL/HDL RATIO 2.2 (<3.6); MICROALBUM/CREATININE RATIO,UR 61.6 ug/mg (<30.0); MICROALBUMIN,URINE 4.5 mg/dL (0-300.0); POTASSIUM 3.8 mmol/L (3.5-5.0); SODIUM 134 mmol/L (135-145); TOTAL PROTEIN 7.4 g/dL (6.7-8.2); TRIGLYCERIDES 195 mg/dL; VLDL CHOLESTEROL 39 mg/dL
== END 2020-11-09 23:59 | disposition home or self-care (01) ==
LOC: LAB.WCP 08:00
PROVIDERS: ATTEND Internal Medicine
DX: E11.9 Type 2 diabetes mellitus without complications (principal); E29.1 Testicular hypofunction; B35.1 Tinea unguium
CPT/HCPCS: 36415; 80053; 80061; 80076; 82043; 82570; 83036; 83721; 84146; 84153; 84403; 85025

== ENCOUNTER 2020-12-30 09:05 | Outpatient (CLI) | payer MEDICARE ==
--- NOTE | 2020-12-30 09:39 | SLEEP CARE CONSULTATION ---
Information from patient questionnaire entered by Yuridia Perea. I have reviewed and concur with the information entered by Yuridia Perea. This document represents the service I personally performed and the decisions made by , Gayle Ma ARNP. History of Present Illness Service Date and Time: 12/30/2020 0905 Previous diagnosis: Mild, Obstructive Sleep Apnea-Hypopnea Syndrome AHI: 11.7 (in 2012) Reason for follow up: annual (last seen 12/2019) Equipment type: CPAP Equipment obtained from: [employer] (getting supplies as needed) Mask style: Nasal (over the nose) Mask brand: [email or web address] (Eson) Backup mask available: Yes Last cushion change: 1 month Prior sleep studies: Yes Year and Where: 2012 - [facility] Type of Sleep Study: Polysomnography HPI additional information: MARYANNE ROTHMAN was diagnosed to have mild, AHI 11.7, obstructive sleep apnea- hypopnea syndrome and returned today for CPAP therapy annual follow-up. CPAP Compliance Data - Data Reviewed with Patient Average duration of nightly device use: 7 hr 41 min Compliance rate %: 99.4 (180 days) Current pressure setting (cmH2O): 7 Humidity settin Heated hose settin Average residual AHI: 0.9 Average large leak: 1 sec Subjective Patient concerns: reports: dry mouth, nose, throat (has ACT lozenges to help with dry mouth and water at bedside). denies: aerophagia, mask discomfort, air blowing in eyes, mask leak noise, condensation in mask/hose, nasal congestion, epistaxis, other Observed to snore while using device: No (rare snore) Current pressure setting perceived as: comfortable On therapy, patient: reports: sleeping better, awakening more refreshed, being more awake and alert during the day, more rested overall. denies: drowsiness while driving Initial [place] Sleepiness Scale score: 8 (in 2013) Current [place] Sleepiness Scale score: 9 Allergies and Home Medications Home medication list reviewed: Yes Allergy and home medication list: Rosuvastatin HCTZ Metoprolol Tadaphil Metformin Losartan Spiriva Cilostazol Lantus Humlog Review of Systems Review of systems same as previous: Yes (no changes) Physical Exam Heart Rate: 66 O2 Saturation: 96 Height: 5 ft 10 in Weight: 220 lb Body Mass Index: 31.5 BMI Classification: Obese Impression and Plan 1. Obstructive Sleep Apnea-Hypopnea Syndrome, mild, with excellent treatment compliance and excellent apnea control. On CPAP therapy, the patient has better sleep quality and is more rested overall. He has significant improvement of his apneas and is satisfied with his treatment. He continues to have some mouth dryness. He has nightly mouth dryness. He has his humidity set at 5 and still has to use an OTC lozenge and water at bedside. Oral dryness can be reduced by adjusting humidity setting higher or heated hose lower or by adjusting both settings. Patient advised that chronic oral dryness can affect dental health and advised to follow up with dentist. He voiced understanding. Patient's apnea severity and rationale for treatment to reduce apnea, improve sleep quality and reduce cardiovascular and cerebrovascular events was reviewed. I also reviewed the benefit of consistent device use of CPAP for hypertension, and diabetes. * Continue auto CPAP pressure at 7 cmH2O * Notify me if snoring with mask or feeling that the pressure is too much or too little * Attempt to lose weight * Call this office if any problems using CPAP * Return for follow up in 1 year, or sooner if concerns arise Counseling Topics: Spare mask, Weight loss health impact Visit Type: In Office Time Spent with Patient (minutes): 21 Provider Statement: I spent 100% of the Face to Face Visit with the patient with greater than 50% spent counseling the patient and coordination of care.
== END 2020-12-30 09:06 | disposition home or self-care (01) ==
LOC: SC 09:05
PROVIDERS: ATTEND Nurse Practitioner Family
DX: G47.33 Obstructive sleep apnea (adult) (pediatric) (principal); E66.9 Obesity, unspecified; Z68.31 Body mass index [BMI] 31.0-31.9, adult
CPT/HCPCS: 99213; G0463; 99212

== ENCOUNTER 2021-02-26 09:18 | Outpatient (CLI) | payer MEDICARE ==
[2021-02-26 12:25] LABS: CREATININE 1.5 mg/dL (0.6-1.2); POTASSIUM 3.8 mmol/L (3.5-5.0)
[2021-02-26 13:02] LABS: ESTIMATED AVERAGE GLUCOSE 143 mg/dL (70-100); HEMOGLOBIN A1c% 6.6 % (4.27-6.07)
== END 2021-02-26 23:59 | disposition home or self-care (01) ==
LOC: LAB.WCP 09:18
PROVIDERS: ATTEND Internal Medicine
DX: E11.59 Type 2 diabetes mellitus with other circulatory complications (principal)
CPT/HCPCS: 36415; 80048; 83036

== ENCOUNTER 2021-05-25 08:00 | Outpatient (CLI) | payer MEDICARE ==
[2021-05-25 13:30] LABS: ALBUMIN 4.6 g/dL (3.2-5.5); ALBUMIN/GLOBULIN RATIO 1.8 (1.0-2.2); ALKALINE PHOSPHATASE 46 IU/L (42-121); ALT ALANINE AMINOTRANSFERASE 43 IU/L (10-60); AST ASPARTATE AMINOTRANSFERASE 35 IU/L (10-42); BILIRUBIN,TOTAL 0.9 mg/dL (0.2-1.0); BUN - BLOOD UREA NITROGEN 18 mg/dL (6-20); CARBON DIOXIDE - CO2 28 mmol/L (21-32); CHLORIDE 100 mmol/L (101-111); CHOL/HDL RATIO 3.7 (<5.0); CHOLESTEROL 122 mg/dL; CREATININE 1.4 mg/dL (0.6-1.2); GFR - MDRD 50 (>89); GLUCOSE 100 mg/dL (70-100); HDL CHOLESTEROL 33 mg/dL; LDL CHOLESTEROL,CALCULATED 52 mg/dL; LDL/HDL RATIO 1.6 (<3.6); POTASSIUM 3.9 mmol/L (3.5-5.0); SODIUM 136 mmol/L (135-145); TOTAL PROTEIN 7.2 g/dL (6.7-8.2); TRIGLYCERIDES 186 mg/dL; VLDL CHOLESTEROL 37 mg/dL
[2021-05-25 13:33] LABS: BASOPHILS # (AUTO) 0.1 10^3/uL (0.0-0.1); BASOPHILS % (AUTO) 0.9 %; EOSINOPHILS # (AUTO) 0.2 10^3/uL (0.0-0.7); EOSINOPHILS % (AUTO) 3.6 %; HCT - HEMATOCRIT 44.5 % (42.0-52.0); HGB - HEMOGLOBIN 15.2 g/dL (14.0-18.0); LYMPHOCYTES # (AUTO) 1.6 10^3/uL (1.5-3.5); MEAN CORPUSCULAR HGB CONC 34.2 g/dL (32.0-36.0); MEAN CORPUSCULAR VOLUME 96.7 fL (80.0-94.0); MEAN PLATELET VOLUME 11.5 fL (7.4-11.4); MONOCYTES # (AUTO) 0.7 10^3/uL (0.0-1.0); MONOCYTES % (AUTO) 9.8 %; NEUTROPHILS # (AUTO) 4.1 10^3/uL (1.5-6.6); NEUTROPHILS % (AUTO) 61.4 %; PLT - PLATELET COUNT 179 10^3/uL (130-450); RED CELL DISTRIBUTION WIDTH 13.7 % (12.0-15.0); WHITE BLOOD COUNT 6.6 x10^3/uL (4.8-10.8)
[2021-05-25 13:34] LABS: ESTIMATED AVERAGE GLUCOSE 137 mg/dL (70-100); HEMOGLOBIN A1c% 6.4 % (4.27-6.07)
[2021-05-25 13:35] LABS: CREATININE,URINE 69.7 mg/dL; MICROALBUM/CREATININE RATIO,UR 111.9 ug/mg (<30.0); MICROALBUMIN,URINE 7.8 mg/dL (0-300.0)
== END 2021-05-25 23:59 | disposition home or self-care (01) ==
LOC: LAB.WCP 08:00
PROVIDERS: ATTEND Internal Medicine
DX: E11.59 Type 2 diabetes mellitus with other circulatory complications (principal); E29.1 Testicular hypofunction
CPT/HCPCS: 36415; 80053; 80061; 82043; 82570; 83036; 83721; 84153; 84403; 85025

== ENCOUNTER 2021-09-01 09:36 | Outpatient (CLI) | payer MEDICARE ==
[2021-09-01 13:35] LABS: BASOPHILS # (AUTO) 0.1 10^3/uL (0.0-0.1); BASOPHILS % (AUTO) 0.7 %; EOSINOPHILS # (AUTO) 0.2 10^3/uL (0.0-0.7); EOSINOPHILS % (AUTO) 3.5 %; HCT - HEMATOCRIT 44.2 % (42.0-52.0); HGB - HEMOGLOBIN 15.3 g/dL (14.0-18.0); LYMPHOCYTES # (AUTO) 1.7 10^3/uL (1.5-3.5); LYMPHOCYTES % (AUTO) 25.3 %; MEAN CORPUSCULAR HEMOGLOBIN 33.3 pg (27.0-31.0); MEAN CORPUSCULAR HGB CONC 34.6 g/dL (32.0-36.0); MEAN CORPUSCULAR VOLUME 96.1 fL (80.0-94.0); MEAN PLATELET VOLUME 11.5 fL (7.4-11.4); MONOCYTES # (AUTO) 0.6 10^3/uL (0.0-1.0); MONOCYTES % (AUTO) 8.8 %; NEUTROPHILS # (AUTO) 4.2 10^3/uL (1.5-6.6); NEUTROPHILS % (AUTO) 61.3 %; PLT - PLATELET COUNT 157 10^3/uL (130-450); RED CELL DISTRIBUTION WIDTH 13.9 % (12.0-15.0); WHITE BLOOD COUNT 6.8 x10^3/uL (4.8-10.8)
[2021-09-01 13:52] LABS: CALCIUM 10.5 mg/dL (8.5-10.3); CREATININE 1.4 mg/dL (0.6-1.2)
[2021-09-01 13:59] LABS: CREATININE,URINE 101.2 mg/dL; MICROALBUM/CREATININE RATIO,UR 91.9 ug/mg (<30.0); MICROALBUMIN,URINE 9.3 mg/dL (0-300.0)
[2021-09-01 19:50] LABS: ESTIMATED AVERAGE GLUCOSE 137 mg/dL (70-100); HEMOGLOBIN A1c% 6.4 % (4.27-6.07)
== END 2021-09-01 23:59 | disposition home or self-care (01) ==
LOC: LAB.WCP 09:36
PROVIDERS: ATTEND Internal Medicine
DX: E11.59 Type 2 diabetes mellitus with other circulatory complications (principal); R97.20 Elevated prostate specific antigen [PSA]; E29.1 Testicular hypofunction
CPT/HCPCS: 36415; 80048; 82043; 82570; 83036; 84153; 84403; 85025

== ENCOUNTER 2021-10-26 08:45 | Outpatient (CLI) | payer MEDICARE ==
--- NOTE | 2021-10-26 18:18 | XRAY Report ---
PROCEDURE: Knee 4 View LT INDICATIONS: KNEE PAIN TECHNIQUE: 4 views of the left knee(s) were acquired. COMPARISON: None. FINDINGS: Bones: No fractures or dislocations. No suspicious bony lesions. Moderate medial and patellofemoral compartment osteophytosis. Mild lateral compartment osteophytosis. Soft tissues: Small nonspecific joint effusion. No suspicious soft tissue calcifications. IMPRESSION: Left knee tricompartmental osteoarthritis. Small nonspecific joint effusion. Reviewed by: Ashley Guzmán MD, PhD on 10/26/2021 6:16 PM PST Approved by: Ashley Guzmán MD, PhD on 10/26/2021 6:16 PM PST Station ID: [id number]
== END 2021-10-26 08:46 | disposition home or self-care (01) ==
LOC: DI.WOS 08:45
PROVIDERS: ATTEND Orthopaedic Surgery
DX: M17.12 Unilateral primary osteoarthritis, left knee (principal); M25.462 Effusion, left knee

== ENCOUNTER 2022-02-12 10:12 | Outpatient (CLI) | payer MEDICARE ==
[2022-02-12 18:56] LABS: BASOPHILS # (AUTO) 0.1 10^3/uL (0.0-0.1); BASOPHILS % (AUTO) 1.1 %; EOSINOPHILS # (AUTO) 0.3 10^3/uL (0.0-0.7); EOSINOPHILS % (AUTO) 4.2 %; HCT - HEMATOCRIT 42.7 % (42.0-52.0); HGB - HEMOGLOBIN 14.7 g/dL (14.0-18.0); LYMPHOCYTES # (AUTO) 1.7 10^3/uL (1.5-3.5); LYMPHOCYTES % (AUTO) 25.8 %; MEAN CORPUSCULAR HEMOGLOBIN 33.9 pg (27.0-31.0); MEAN CORPUSCULAR HGB CONC 34.4 g/dL (32.0-36.0); MEAN CORPUSCULAR VOLUME 98.4 fL (80.0-94.0); MEAN PLATELET VOLUME 11.6 fL (7.4-11.4); MONOCYTES # (AUTO) 0.7 10^3/uL (0.0-1.0); MONOCYTES % (AUTO) 10.7 %; NEUTROPHILS # (AUTO) 3.9 10^3/uL (1.5-6.6); PLT - PLATELET COUNT 175 10^3/uL (130-450); RED BLOOD COUNT 4.34 10^6/uL (4.70-6.10); RED CELL DISTRIBUTION WIDTH 14.2 % (12.0-15.0); WHITE BLOOD COUNT 6.6 x10^3/uL (4.8-10.8)
[2022-02-12 19:03] LABS: ESTIMATED AVERAGE GLUCOSE 166 mg/dL (70-100); HEMOGLOBIN A1c% 7.4 % (4.27-6.07)
[2022-02-12 19:09] LABS: BUN - BLOOD UREA NITROGEN 17 mg/dL (6-20); CALCIUM 10.2 mg/dL (8.5-10.3); CARBON DIOXIDE - CO2 26 mmol/L (21-32); CHLORIDE 101 mmol/L (101-111); CHOL/HDL RATIO 3.6 (<5.0); CHOLESTEROL 131 mg/dL; CREATININE 1.4 mg/dL (0.6-1.2); GFR - MDRD 49 (>89); GLUCOSE 197 mg/dL (70-100); HDL CHOLESTEROL 36 mg/dL; LDL CHOLESTEROL,CALCULATED 29 mg/dL; LDL/HDL RATIO 0.8 (<3.6); POTASSIUM 3.9 mmol/L (3.5-5.0); SODIUM 138 mmol/L (135-145); TRIGLYCERIDES 328 mg/dL; VLDL CHOLESTEROL 66 mg/dL
== END 2022-02-12 10:13 | disposition home or self-care (01) ==
LOC: LAB.N 10:12
PROVIDERS: ATTEND Internal Medicine
DX: E11.59 Type 2 diabetes mellitus with other circulatory complications (principal); E78.5 Hyperlipidemia, unspecified; R97.20 Elevated prostate specific antigen [PSA]; E29.1 Testicular hypofunction
CPT/HCPCS: 36415; 80048; 80061; 83036; 83721; 84153; 84403; 85025

== ENCOUNTER 2022-02-25 11:25 | Outpatient (CLI) | payer MEDICARE ==
--- NOTE | 2022-02-25 13:06 | XRAY Report ---
PROCEDURE: Cervical Spine Complete INDICATIONS: NECK PAIN TECHNIQUE: 4 views of the cervical spine acquired. COMPARISON: None. FINDINGS: Vertebral body height is maintained. Normal bone mineralization, craniovertebral relationships and pr evertebral soft tissue. There is reversal of the normal cervical lordosis at the C5-6. Grade 1 C5-6 retrolisthesis present. T he disc space narrowing and anterior osteophytes noted in the lower lumbar spine. Hypertrophic facet joints present throughout. Oblique images show bilateral foraminal stenosis in the mid cervical spine IMPRESSION: Multilevel degenerative disc disease and arthropathy results in reversal of normal cervical lordosis and grade 1 C5-6 retrolisthesis Reviewed by: Navdeep Gee MD on 02/25/2022 12:04 PM AMANDA Approved by: Navdeep Gee MD on 02/25/2022 12:04 PM AMANDA Station ID: [id number]
== END 2022-02-25 11:26 | disposition home or self-care (01) ==
LOC: DI 11:25
PROVIDERS: ATTEND Nurse Practitioner
DX: M43.12 Spondylolisthesis, cervical region (principal); M47.812 Spondylosis without myelopathy or radiculopathy, cervical region; M48.02 Spinal stenosis, cervical region

== ENCOUNTER 2022-02-28 09:59 | Emergency (ER) | payer MEDICARE ==
[2022-02-28] MEDS ORDERED: CYCLOBENZAPRINE 10 MG TABLET PO STA (13:25)
[2022-02-28] MEDS ORDERED: predniSONE 20 MG TABLET PO STA (13:25)
--- NOTE | 2022-02-28 13:28 | ED Physician Documentation ---
History of Present Illness - Stated complaint Stated Complaint: NECK PX - Chief complaint Chief Complaint: Neuro - History obtained from History obtained from: Patient - Additonal information Additional information: The patient comes to the emergency department chief complaint of neck pain radiating down into his left shoulder. He states that he Has had neck issues for a long time, due to sports injuries when he was younger. He has had x-ray showing arthritis in his neck, but states that he just woke up 10 days ago with pain at the base of his neck going into his left shoulder. He states he thought he had slept the same way as he always does. He denies any fevers or chills. No distinct injury. Patient denies numbness or tingling or weakness in his upper extremities. No other focal neurologic symptoms anywhere else. It hurts the most if he turns his head from side to side. He has been taking anti- inflammatories at home otherwise so nothing else. He has not seen his primary care physician for this. Review of Systems Ten Systems: 10 systems reviewed and negative Constitutional: reports: Reviewed and negative Eyes: reports: Reviewed and negative Ears: reports: Reviewed and negative Nose: reports: Reviewed and negative Throat: reports: Reviewed and negative Cardiac: reports: Reviewed and negative Respiratory: reports: Reviewed and negative GI: reports: Reviewed and negative : reports: Reviewed and negative Skin: reports: Reviewed and negative Musculoskeletal: reports: Neck pain Neurologic: reports: Reviewed and negative Psychiatric: reports: Reviewed and negative Endocrine: reports: Reviewed and negative Immunocompromised: reports: Reviewed and negative PD PAST MEDICAL HISTORY - Past Medical History Cardiovascular: Hypertension, High cholesterol Respiratory: COPD, Sleep apnea, CPAP use Neuro: None Endocrine/Autoimmune: Type 2 diabetes GI: Colon polyps : None HEENT: Chronic vision loss, Chronic hearing loss Psych: None Musculoskeletal: Osteoarthritis Derm: Other - Past Surgical History Past Surgical History: Yes General: Appendectomy, Colonoscopy HEENT: Cataracts - Present Medications Home Medications: Ambulatory Orders Medication Instructions Recorded Confirmed Aspirin [Aspir 81] 81 mg PO DAILY 05/27/13 02/28/22 Metformin HCl [Glucophage] 850 mg PO BID 05/27/13 02/28/22 Ascorbic Acid [Vitamin C] 500 mg PO DAILY 05/01/18 02/28/22 Garlic 1,000 mg PO DAILY 05/01/18 02/28/22 Insulin Glargine [Lantus Solostar] 55 unit SUBQ DAILY 05/01/18 02/28/22 Insulin Lispro [Humalog Kwikpen 10 unit SUBQ QDDINNER 05/01/18 02/28/22 U-100] Iron,Carbonyl [Iron Chews] 18 mg PO DAILY 05/01/18 02/28/22 Losartan Potassium 100 mg PO DAILY 05/01/18 02/28/22 Multivitamin [Multiple Vitamins] 1 each PO DAILY 05/01/18 02/28/22 [place]-3/Dha/Epa/Fish Oil [Fish Oil 1 each PO DAILY 05/01/18 02/28/22 500 mg Softgel] Tiotropium [place] [Spiriva] 18 mcg IH DAILY 05/01/18 02/28/22 Vitamin E (Dl,Tocopheryl Acet) 200 unit PO DAILY 05/01/18 02/28/22 [Vitamin E] Zinc 22.5 mg PO DAILY 05/01/18 02/28/22 Metoprolol Succinate 200 mg PO DAILY 08/08/18 02/28/22 hydroCHLOROthiazide 12.5 mg PO DAILY 08/08/18 02/28/22 [Hydrochlorothiazide] Cyclobenzaprine [Flexeril] 10 mg PO TID PRN #20 tablet 02/28/[address] [Voltaren] 75 mg PO BID PRN 02/28/22 02/28/22 Salmeterol Xinafoate [Serevent 50 mcg INH DAILY 02/28/22 02/28/22 Diskus] predniSONE [Deltasone] 10 mg PO [id number] #42 tab 02/28/22 - Allergies Allergies/Adverse Reactions: Allergies Allergy/AdvReac Type Severity Reaction Status Date / Time No Known Drug Allergies Allergy Verified 02/28/22 10:58 - Social History Does the pt smoke?: No Smoking Status: Never smoker Does the pt drink ETOH?: Yes Does the pt have substance abuse?: No - Immunizations Immunizations are current?: Yes - POLST Patient has POLST: No PD ED PE NORMAL - Vitals Vital signs reviewed: Yes - General General: Alert and oriented X 3, No acute distress, Well developed/nourished - HEENT HEENT: Atraumatic, PERRL, EOMI, Moist mucous membranes - Neck Neck: Supple, no meningeal sign, No bony TTP, Other (Mildly limited range of motion, secondary to pain especially with rotation. 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 I would also recommend that he see his primary doctor to discuss whether they can do a cortisone shot. Otherwise, this will either blow over, or become a chronic issue for which she would like to see a usability specialist. The patient came unfortunately expecting an MRI today and I have informed him we will not be able to do this for him as it is 28 of February and we do not have MRI available today and also, and this does not meet any criteria for emergent MRI. We have discussed the usual indications for return. Departure - Departure Disposition: 01 Home, Self Care Clinical Impression: Arthritis, Neck pain Condition: Stable Instructions: ED Neck Pain No Trauma Prescriptions: predniSONE [Deltasone] 10 mg PO [id number] #42 tab Cyclobenzaprine [Flexeril] 10 mg PO TID PRN #20 tablet PRN Reason: Spasms Comments: The following pharmacies are closed today: [facility]. The following pharmacies are open: [facility], 10 AM to 6 PM;[facility] 10 at a.m. to 6 PM; [facility] at 9 AM to 9 PM. Discharge Date/Time: 02/28/22 13:35
[2022-02-28 13:37] VITALS: BP 140/80
== END 2022-02-28 13:35 | disposition home or self-care (01) ==
LOC: ED 09:59
DX: M19.91 Primary osteoarthritis, unspecified site (principal); M54.2 Cervicalgia; I10 Essential (primary) hypertension; E11.9 Type 2 diabetes mellitus without complications; Z79.4 Long term (current) use of insulin
CPT/HCPCS: 99282; A9270; J7512

== ENCOUNTER 2022-04-25 09:34 | Outpatient (CLI) | payer MEDICARE ==
[2022-04-25 12:05] LABS: BASOPHILS # (AUTO) 0.1 10^3/uL (0.0-0.1); BASOPHILS % (AUTO) 0.7 %; EOSINOPHILS # (AUTO) 0.3 10^3/uL (0.0-0.7); EOSINOPHILS % (AUTO) 3.6 %; HCT - HEMATOCRIT 39.2 % (42.0-52.0); HGB - HEMOGLOBIN 13.8 g/dL (14.0-18.0); LYMPHOCYTES # (AUTO) 1.7 10^3/uL (1.5-3.5); LYMPHOCYTES % (AUTO) 24.2 %; MEAN CORPUSCULAR HEMOGLOBIN 33.4 pg (27.0-31.0); MEAN CORPUSCULAR HGB CONC 35.2 g/dL (32.0-36.0); MEAN CORPUSCULAR VOLUME 94.9 fL (80.0-94.0); MEAN PLATELET VOLUME 11.4 fL (7.4-11.4); MONOCYTES # (AUTO) 0.6 10^3/uL (0.0-1.0); MONOCYTES % (AUTO) 9.1 %; NEUTROPHILS # (AUTO) 4.3 10^3/uL (1.5-6.6); NEUTROPHILS % (AUTO) 62.1 %; PLT - PLATELET COUNT 173 10^3/uL (130-450); RED BLOOD COUNT 4.13 10^6/uL (4.70-6.10); RED CELL DISTRIBUTION WIDTH 13.4 % (12.0-15.0); WHITE BLOOD COUNT 6.9 x10^3/uL (4.8-10.8)
[2022-04-25 13:21] LABS: ESTIMATED AVERAGE GLUCOSE 154 mg/dL (70-100)
[2022-04-25 13:23] LABS: ALBUMIN 4.5 g/dL (3.2-5.5); ALBUMIN/GLOBULIN RATIO 1.7 (1.0-2.2); BILIRUBIN,TOTAL 0.7 mg/dL (0.2-1.0); CALCIUM 10.4 mg/dL (8.5-10.3); CREATININE 1.3 mg/dL (0.6-1.2); TOTAL PROTEIN 7.1 g/dL (6.7-8.2)
== END 2022-04-25 09:35 | disposition home or self-care (01) ==
LOC: LAB.N 09:34
PROVIDERS: ATTEND Internal Medicine
DX: E11.59 Type 2 diabetes mellitus with other circulatory complications (principal); R97.20 Elevated prostate specific antigen [PSA]
CPT/HCPCS: 36415; 80053; 83036; 84153; 85025

== ENCOUNTER 2022-08-30 16:12 | Emergency (ER) | payer MEDICARE ==
[2022-08-30] MEDS ORDERED: iohexoL-300 100 ML VIAL ONE (16:48)
[2022-08-30 16:50] LABS: BASOPHILS # (AUTO) 0.1 10^3/uL (0.0-0.1); BASOPHILS % (AUTO) 0.7 %; EOSINOPHILS # (AUTO) 0.3 10^3/uL (0.0-0.7); EOSINOPHILS % (AUTO) 3.3 %; HCT - HEMATOCRIT 40.3 % (42.0-52.0); HGB - HEMOGLOBIN 13.1 g/dL (14.0-18.0); LYMPHOCYTES # (AUTO) 2.6 10^3/uL (1.5-3.5); LYMPHOCYTES % (AUTO) 29.3 %; MEAN CORPUSCULAR HEMOGLOBIN 30.8 pg (27.0-31.0); MEAN CORPUSCULAR HGB CONC 32.5 g/dL (32.0-36.0); MEAN CORPUSCULAR VOLUME 94.8 fL (80.0-94.0); MEAN PLATELET VOLUME 10.5 fL (7.4-11.4); MONOCYTES # (AUTO) 0.9 10^3/uL (0.0-1.0); MONOCYTES % (AUTO) 9.6 %; NEUTROPHILS % (AUTO) 56.9 %; PLT - PLATELET COUNT 217 10^3/uL (130-450); RED BLOOD COUNT 4.25 10^6/uL (4.70-6.10); RED CELL DISTRIBUTION WIDTH 14.5 % (12.0-15.0); WHITE BLOOD COUNT 8.9 x10^3/uL (4.8-10.8)
[2022-08-30 17:05] LABS: ALBUMIN 4.5 g/dL (3.2-5.5); ALBUMIN/GLOBULIN RATIO 1.4 (1.0-2.2); BILIRUBIN,TOTAL 0.6 mg/dL (0.2-1.0); CALCIUM 10.4 mg/dL (8.5-10.3); CREATININE 1.5 mg/dL (0.6-1.2); POTASSIUM 3.8 mmol/L (3.5-5.0); TOTAL PROTEIN 7.7 g/dL (6.7-8.2)
--- NOTE | 2022-08-30 17:12 | XRAY Report ---
PROCEDURE: Chest 1 View X-Ray INDICATIONS: Chest Pain TECHNIQUE: One view of the chest was acquired. COMPARISON: Chest x-ray 09/05/2019 FINDINGS: Surgical changes and devices: None. Lungs and pleura: No pleural effusions or pneumothorax. Lungs are clear. Mediastinum: Mediastinal contours appear normal. Heart size is mildly prominent. Bones and chest wall: No suspicious bony lesions. Overlying soft tissues appear unremarkable. IMPRESSION: No acute pulmonary process. Reviewed by: Carla Chase MD on 08/30/2022 5:11 PM PST Approved by: Crala Chase MD on 08/30/2022 5:11 PM PST Station ID: [id number]
--- NOTE | 2022-08-30 18:37 | CT Report ---
PROCEDURE: ANGIO CHEST W/WO INDICATIONS: chest pain s/p surgery 6 weeks ago CONTRAST: 80mL Omni 300 TECHNIQUE: After the administration of intravenous contrast, 2 mm axial images were acquired from the pulmonary apices to the posterior costophrenic angles during the arterial phase. In addition, 1 mm lung kernel and 5 mm soft tissue kernel reconstructions were performed. 3-dimensional coronal oblique maximum int ensity projection (MIP) reformats, 8 mm axial MIP, and 5 mm coronal and sagittal MPR reformats were t hen performed through the thorax. For radiation dose reduction, the following was used: automated exp osure control, adjustment of mA and/or kV according to patient size. COMPARISON: CT chest 03/08/2022 FINDINGS: Image quality: Excellent. Pulmonary arteries: Pulmonary arteries are normal in size, and demonstrate no intraluminal filling d efects to suggest central pulmonary embolism. Lungs and pleura: Chronic interstitial changes are present. There are 2 nodules measuring 2 and 3 mm within the lingula seen on series 6 images 201 and 203. These appear new compared to 03/08/2022 No ple ural effusions or pneumothorax. Central and peripheral airways are patent. Mediastinum: Heart size is normal, without pericardial effusion. No mediastinal or hilar adenopathy . Thoracic aorta is normal in caliber and enhancement. Esophagus is normal in caliber, with mild hi atal hernia. Bones and chest wall: No suspicious bony lesions. Ribs and thoracic spine appear intact throughout. No axillary or supraclavicular adenopathy. The thyroid is normal in size and there are no incident al findings. Abdomen: Partially visualized simple left renal cyst is present. Otherwise, visualized upper abdomin al solid organs appear normal in the early arterial phase of enhancement. IMPRESSION: No pulmonary embolism. No effusions or consolidations. 2. Subcentimeter nodules within the lingula new compared to prior exam. Recommend interval follow-up as below based on size and initial visualization date. Fleischner Society criteria for SOLID lung nodule followup. Nodule size (mm) *<6 *Low-risk patient: No follow-up needed *High-risk patient: Optional CT at 12 months; if no change, no further follow-up *6-8 *Low-risk patient: Initial follow-up CT at 6-12 months, then optional CT at 18-24 months. *High-risk patient: Initial follow-up CT at CT at 6-[address] 18-24 months. *>8 single nodule *Low-risk patient: CT, PET or biopsy at 3 months. *High-risk patient: Same as for low-risk pts. *>8 multiple nodules *Low-risk patient: CT at 3-6 months, then optional CT at 18-24 months *High-risk patient: CT at 3-6 months, then CT at 18-24 months CLINICAL RECOMMENDATION STATEMENTS: In patients <35 years with an ITN detected on CT, MRI, or extrathyroidal ultrasound, the Committee re commends further evaluation with dedicated thyroid ultrasound if the nodule is "e1 cm and has no susp icious imaging features, and if the patient has normal life expectancy. In patients "e35 years with an ITN detected on CT, MRI, or extrathyroidal ultrasound, the Committee r ecommends further evaluation with dedicated thyroid ultrasound if the nodule is "e1.5 cm and has no s uspicious imaging features, and if the patient has normal life expectancy. (ACR, 2014) Reviewed by: Carla Chase MD on 08/30/2022 6:35 PM PST Approved by: Carla Chase MD on 08/30/2022 6:35 PM PST Station ID: [id number]
--- NOTE | 2022-08-30 18:48 | ED Physician Documentation ---
History of Present Illness - Stated complaint Stated Complaint: CHEST PX,SOA - Chief complaint Chief Complaint: Cardiac - History obtained from History obtained from: Patient, Family - History of Present Illness Timing: Today Pain level max: 2 Pain level now: 0 - Additonal information Additional information: Patient is a 76-year-old male who presents to the emergency department with intermittent sharp left-sided chest pain for the past several days. He states he had a hip replacement about 6 weeks ago. He went to the walk-in clinic today who sent him here for further evaluation and potential PE. He describes the pain as lasting for 1 to 2 seconds at a time, sharp, worse with taking a breath, that does not occur every time he takes a deep breath. Has not noted any calf swelling or tenderness. He does state that his right second toe is red and is concerned about potential infection. No fevers. No chills. No shortness of breath. No cough. No congestion. Does have COPD. States no change with his inhaler. No cardiac history. Review of Systems Constitutional: denies: Fever, Chills Throat: denies: Sore throat Cardiac: denies: Palpitations, Calf pain Respiratory: denies: Cough GI: denies: Vomiting, Diarrhea Skin: denies: Rash Musculoskeletal: denies: Neck pain, Back pain Neurologic: denies: Headache, Head injury PD PAST MEDICAL HISTORY - Past Medical History Past Medical History: Yes Cardiovascular: Hypertension, High cholesterol Respiratory: COPD, Sleep apnea, CPAP use Neuro: None Endocrine/Autoimmune: Type 2 diabetes GI: Colon polyps : Benign prostate hypertrophy, Renal insuffiency HEENT: Chronic vision loss, Chronic hearing loss Psych: None Musculoskeletal: Osteoarthritis Derm: Other - Past Surgical History Past Surgical History: Yes General: Appendectomy, Colonoscopy Ortho: Hip replacement HEENT: Cataracts - Present Medications Home Medications: Ambulatory Orders Medication Instructions Recorded Confirmed Aspirin [Aspir 81] 81 mg PO DAILY 05/27/13 08/30/22 Metformin HCl [Glucophage] 850 mg PO BID 05/27/13 08/30/22 Insulin Glargine [Lantus Solostar] 50 unit SUBQ DAILY 05/01/18 08/30/22 Insulin Lispro [Humalog Kwikpen 10 unit SUBQ BIDWM 05/01/18 08/30/22 U-100] Losartan Potassium 100 mg PO DAILY 05/01/18 08/30/22 Tiotropium [place] [Spiriva] 18 mcg IH DAILY 05/01/18 08/30/22 Metoprolol Succinate 200 mg PO DAILY 08/08/18 08/30/22 hydroCHLOROthiazide 25 mg PO DAILY 08/08/18 08/30/22 [Hydrochlorothiazide] Salmeterol Xinafoate [Serevent 50 mcg INH DAILY 02/28/22 08/30/22 Diskus] Ciclopirox Olamine [Ciclodan] 1 applic TP DAILY PRN 08/30/22 08/30/22 Empagliflozin [Jardiance] 10 mg PO DAILY 08/30/22 08/30/22 Famotidine 40 mg PO DAILY 08/30/22 08/30/22 Fluticasone/Salmeterol [Advair Hfa 1 puffs IH DAILY PM 08/30/22 08/30/22 115-21 Mcg Inhaler] Meloxicam [Mobic] 7.5 mg PO DAILY PRN 08/30/22 08/30/22 Rosuvastatin Calcium [Crestor] 20 mg PO HS 08/30/22 08/30/22 Sildenafil Citrate 50 - 100 mg PO DAILY PRN 08/30/22 08/30/22 cephALEXin [Keflex] 500 mg PO Q6H #28 cap 08/30/22 methocarbamoL [Robaxin] 500 mg PO TID PRN 08/30/22 08/30/22 - Allergies Allergies/Adverse Reactions: Allergies Allergy/AdvReac Type Severity Reaction Status Date / Time No Known Drug Allergies Allergy Verified 08/30/22 16:24 - Social History Does the pt smoke?: No Smoking Status: Never smoker Does the pt drink ETOH?: Yes Does the pt have substance abuse?: No - Immunizations Immunizations are current?: Yes - POLST Patient has POLST: No PD ED PE NORMAL - Vitals Vital signs reviewed: Yes - General General: Alert and oriented X 3, No acute distress, Well developed/nourished - HEENT HEENT: PERRL, Moist mucous membranes, Pharynx benign - Neck Neck: Supple, no meningeal sign, No bony TTP, No adenopathy, No JVD, No bruit - Cardiac Cardiac: RRR, No murmur, Strong equal pulses, Other (No tenderness palpation across the anterior chest wall. No pain with movement of the shoulder or neck.) - Respiratory Respiratory: No respiratory distress, Other (Mildly diminished breath sounds bilaterally. No wheezing) - Abdomen Abdomen: Soft, Non tender, Non distended - Back Back: No CVA TTP, No spinal TTP - Derm Derm: Warm and dry, No rash - Extremities Extremities: No edema, No calf tenderness / cord, Other (Mild erythema to the proximal phalanx of the right second toe. Neurovascularly intact. No drainage.) - Neuro Neuro: Alert and oriented X 3 - Psych Psych: Normal mood, Normal affect Results - Vitals Vitals: Vital Signs - 24 hr 08/30/22 08/30/22 08/30/22 16:19 18:29 18:46 Temperature 36.7 C Heart Rate 70 66 72 Respiratory 18 97 H 17 Rate Blood Pressure 143/62 H 134/73 H 136/66 H O2 Saturation 96 97 96 08/30/22 08/30/22 19:30 20:23 Temperature Heart Rate 68 77 Respiratory 18 17 Rate Blood Pressure 129/64 O2 Saturation 99 Oxygen O2 Source Room air - EKG (time done) 1626 Rate: Rate (enter#) (76) Rhythm: NSR [place]: Normal Intervals: Normal [place] QRS: Normal Ischemia: Normal ST segments - Labs Labs: Laboratory Tests 08/30/22 08/30/22 08/30/22 16:42 16:42 16:42 WBC 8.9 RBC 4.25 L Hgb 13.1 L Hct 40.3 L MCV 94.8 H MCH 30.8 MCHC 32.5 RDW 14.5 Plt Count 217 MPV 10.5 Neut # (Auto) 5.0 Lymph # (Auto) 2.6 [place] # (Auto) 0.9 Eos # (Auto) 0.3 Baso # (Auto) 0.1 Absolute Nucleated RBC 0.00 Nucleated RBC % 0.0 Sodium 135 Potassium 3.8 Chloride 96 L Carbon Dioxide 27 Anion Gap 12.0 BUN 29 H Creatinine 1.5 H Estimated GFR (MDRD) 46 L Glucose 153 H Calcium 10.4 H Total Bilirubin 0.6 AST 27 ALT 31 Alkaline Phosphatase 64 Troponin I High Sens 7.7 Total Protein 7.7 Albumin 4.5 Globulin 3.2 Albumin/Globulin Ratio 1.4 Lipase 30 - Rads (name of study) CT pulmonary angiogram Radiology: Final report received, See rad report Chest x-ray Radiology: Final report received, See rad report PD Medical Decision Making - ED course Complexity details: reviewed results, re-evaluated patient, considered differential (No ST elevation [place], no aortic dissection, no PE, no tension pneumothorax, no aortic aneurysm), d/w patient ED course: Patient with 2 complaints today. The first is chest pain, chest pain. He states it feels sharp and last for few seconds. He did have recent surgery, so PE was considered. CT pulmonary angiogram does not show any pulmonary embolism. He does have some very small nodules, he will follow-up with his doctor for this. His CBC and chemistries do not show any significant abnormalities other than a mildly elevated calcium, mild renal insufficiency mildly elevated glucose and elevated BUN. High-sensitivity troponin was negative. He does also appear to have a mild cellulitis of the right second toe. There is a small sore at this area, no abscess or drainage. We will place on antibiotics for this. We will have him follow-up with his doctor for further care. Patient is very well- appearing, nontoxic. Afebrile. No hypoxia. No respiratory distress. Patient counseled regarding signs and symptoms for which I believe and urgent re- evaluation would be necessary. Patient with good understanding of and agreement to plan and is comfortable going home at this time This document was made in part using voice recognition software. While efforts are made to proofread this document, sound alike and grammatical errors may occur. Departure - Departure Disposition: 01 Home, Self Care Clinical Impression: Chest pain Qualifiers: Chest pain type: unspecified Qualified Code(s): R07.9 - Chest pain, unspecified Cellulitis Qualifiers: Site of cellulitis: extremity Site of cellulitis of extremity: toe Laterality: right Qualified Code(s): L03.031 - Cellulitis of right toe Condition: Good Instructions: ED Infec Skin Cellulitis, ED Chest Pain Atypical Unkn Cause Follow-Up: Derick Rosa MD [Primary Care Provider] - Within 1 week Prescriptions: cephALEXin [Keflex] 500 mg PO Q6H #28 cap Comments: Your prescriptions were sent to [facility] in [place]. Please follow-up with your doctor for further care. Return if you worsen. Take all antibiotics until gone. Your CT scan tonight does not show any evidence of blood clots in the lungs. Your heart test did not show any evidence of heart attacks. You do have 2 small pulmonary nodules on your CT scan tonight. Please follow-up with your doctor for this. COMPARISON: CT chest 03/08/2022 FINDINGS: Image quality: Excellent. Pulmonary arteries: Pulmonary arteries are normal in size, and demonstrate no intraluminal filling defects to suggest central pulmonary embolism. Lungs and pleura: Chronic interstitial changes are present. There are 2 nodules measuring 2 and 3 mm within the lingula seen on series 6 images 201 and 203. These appear new compared to 03/08/2022 No pleural effusions or pneumothorax. Central and peripheral airways are patent. Mediastinum: Heart size is normal, without pericardial effusion. No mediastinal or hilar adenopathy. Thoracic aorta is normal in caliber and enhancement. Esophagus is normal in caliber, with mild hiatal hernia. Bones and chest wall: No suspicious bony lesions. Ribs and thoracic spine appear intact throughout. No axillary or supraclavicular adenopathy. The thyroid is normal in size and there are no incidental findings. Abdomen: Partially visualized simple left renal cyst is present. Otherwise, visualized upper abdominal solid organs appear normal in the early arterial phase of enhancement. IMPRESSION: No pulmonary embolism. No effusions or consolidations. 2. Subcentimeter nodules within the lingula new compared to prior exam. Recommend interval follow-up as below based on size and initial visualization date. Fleischner Society criteria for SOLID lung nodule followup. Nodule size (mm) *<6 *Low-risk patient: No follow-up needed *High-risk patient: Optional CT at 12 months; if no change, no further follow-up *6-8 *Low-risk patient: Initial follow-up CT at 6-12 months, then optional CT at 18- 24 months. *High-risk patient: Initial follow-up CT at CT at 6-[address] 18-24 months. *>8 single nodule *Low-risk patient: CT, PET or biopsy at 3 months. *High-risk patient: Same as for low-risk pts. *>8 multiple nodules *Low-risk patient: CT at 3-6 months, then optional CT at 18-24 months *High-risk patient: CT at 3-6 months, then CT at 18-24 months CLINICAL RECOMMENDATION STATEMENTS: In patients <35 years with an ITN detected on CT, MRI, or extrathyroidal ultrasound, the Committee recommends further evaluation with dedicated thyroid ultrasound if the nodule is "e1 cm and has no suspicious imaging features, and if the patient has normal life expectancy. In patients "e35 years with an ITN detected on CT, MRI, or extrathyroidal ultrasound, the Committee recommends further evaluation with dedicated thyroid ultrasound if the nodule is "e1.5 cm and has no suspicious imaging features, and if the patient has normal life expectancy. (ACR, 2014) Discharge Date/Time: 08/30/22 20:27
[2022-08-30] MEDS ORDERED: IPRATROPIUM/ALBUTEROL 3 ML NEB INH STA (19:07)
[2022-08-30] MEDS ORDERED: cephALEXin 250 MG CAPSULE PO STA (19:52)
[2022-08-30 20:23] VITALS: BP 129/64
[2022-08-30] MEDS ORDERED: iohexoL-300 100 ML VIAL IVP ONE (21:21)
== END 2022-08-30 20:27 | disposition home or self-care (01) ==
LOC: ED 16:12
DX: R07.9 Chest pain, unspecified (principal); L03.031 Cellulitis of right toe; I10 Essential (primary) hypertension; E11.9 Type 2 diabetes mellitus without complications; Z79.4 Long term (current) use of insulin
CPT/HCPCS: 36415; 71045; 71275; 80053; 83690; 84484; 85025; 93005; 94640; 94664; 99284; A9270; Q9967

== ENCOUNTER 2022-09-05 09:39 | Outpatient (CLI) | payer MEDICARE | END 2022-09-05 09:40 | disposition home or self-care (01) | LOC: LAB 09:39 | PROVIDERS: ATTEND Internal Medicine Critical Care Medicine | DX: Z01.812 Encounter for preprocedural laboratory examination (principal); Z20.822 Contact with and (suspected) exposure to COVID-19 ==

== ENCOUNTER 2022-10-17 09:32 | Outpatient (CLI) | payer MEDICARE ==
[2022-10-17 12:54] LABS: BASOPHILS # (AUTO) 0.1 10^3/uL (0.0-0.1); BASOPHILS % (AUTO) 0.8 %; EOSINOPHILS # (AUTO) 0.2 10^3/uL (0.0-0.7); EOSINOPHILS % (AUTO) 2.9 %; HCT - HEMATOCRIT 41.6 % (42.0-52.0); HGB - HEMOGLOBIN 13.7 g/dL (14.0-18.0); LYMPHOCYTES # (AUTO) 1.9 10^3/uL (1.5-3.5); LYMPHOCYTES % (AUTO) 26.7 %; MEAN CORPUSCULAR HEMOGLOBIN 31.6 pg (27.0-31.0); MEAN CORPUSCULAR HGB CONC 32.9 g/dL (32.0-36.0); MEAN CORPUSCULAR VOLUME 95.9 fL (80.0-94.0); MEAN PLATELET VOLUME 11.2 fL (7.4-11.4); MONOCYTES # (AUTO) 0.7 10^3/uL (0.0-1.0); MONOCYTES % (AUTO) 9.2 %; NEUTROPHILS # (AUTO) 4.3 10^3/uL (1.5-6.6); PLT - PLATELET COUNT 186 10^3/uL (130-450); RED BLOOD COUNT 4.34 10^6/uL (4.70-6.10); RED CELL DISTRIBUTION WIDTH 14.7 % (12.0-15.0); WHITE BLOOD COUNT 7.2 x10^3/uL (4.8-10.8)
[2022-10-17 13:09] LABS: CREATININE,URINE 101.1 mg/dL; MICROALBUM/CREATININE RATIO,UR 30.7 ug/mg (<30.0); MICROALBUMIN,URINE 3.1 mg/dL (0-300.0)
[2022-10-17 13:19] LABS: ALBUMIN 4.2 g/dL (3.2-5.5); ALBUMIN/GLOBULIN RATIO 1.2 (1.0-2.2); ALKALINE PHOSPHATASE 64 IU/L (42-121); ALT ALANINE AMINOTRANSFERASE 35 IU/L (10-60); AST ASPARTATE AMINOTRANSFERASE 29 IU/L (10-42); BILIRUBIN,TOTAL 0.7 mg/dL (0.2-1.0); BUN - BLOOD UREA NITROGEN 22 mg/dL (6-20); CALCIUM 10.7 mg/dL (8.5-10.3); CARBON DIOXIDE - CO2 26 mmol/L (21-32); CHLORIDE 102 mmol/L (101-111); CHOLESTEROL 153 mg/dL; CREATININE 1.4 mg/dL (0.6-1.2); GFR - MDRD 49 (>89); GLUCOSE 142 mg/dL (70-100); HDL CHOLESTEROL 38 mg/dL; LDL CHOLESTEROL,CALCULATED 60 mg/dL; LDL/HDL RATIO 1.6 (<3.6); SODIUM 139 mmol/L (135-145); TOTAL PROTEIN 7.6 g/dL (6.7-8.2); TRIGLYCERIDES 276 mg/dL; VLDL CHOLESTEROL 55 mg/dL
[2022-10-17 13:26] LABS: ESTIMATED AVERAGE GLUCOSE 137 mg/dL (70-100); HEMOGLOBIN A1c% 6.4 % (4.27-6.07); THYROID STIMULATING HORMONE 3.32 uIU/mL (0.34-5.60)
== END 2022-10-17 09:33 | disposition home or self-care (01) ==
LOC: LAB.N 09:32
PROVIDERS: ATTEND Internal Medicine
DX: E11.59 Type 2 diabetes mellitus with other circulatory complications (principal); I10 Essential (primary) hypertension; E78.5 Hyperlipidemia, unspecified; R97.20 Elevated prostate specific antigen [PSA]; Z13.29 Encounter for screening for other suspected endocrine disorder
CPT/HCPCS: 36415; 80053; 80061; 82043; 82570; 83036; 83721; 84153; 84443; 85025

== ENCOUNTER 2022-10-27 10:17 | Outpatient (CLI) | payer MEDICARE ==
[2022-10-27 10:57] LABS: BASOPHILS # (AUTO) 0.1 10^3/uL (0.0-0.1); BASOPHILS % (AUTO) 0.6 %; EOSINOPHILS # (AUTO) 0.3 10^3/uL (0.0-0.7); EOSINOPHILS % (AUTO) 3.7 %; HCT - HEMATOCRIT 40.8 % (42.0-52.0); HGB - HEMOGLOBIN 13.5 g/dL (14.0-18.0); LYMPHOCYTES # (AUTO) 2.1 10^3/uL (1.5-3.5); LYMPHOCYTES % (AUTO) 24.6 %; MEAN CORPUSCULAR HEMOGLOBIN 31.2 pg (27.0-31.0); MEAN CORPUSCULAR HGB CONC 33.1 g/dL (32.0-36.0); MEAN CORPUSCULAR VOLUME 94.2 fL (80.0-94.0); MONOCYTES # (AUTO) 0.7 10^3/uL (0.0-1.0); MONOCYTES % (AUTO) 8.8 %; NEUTROPHILS # (AUTO) 5.2 10^3/uL (1.5-6.6); NEUTROPHILS % (AUTO) 61.9 %; PLT - PLATELET COUNT 189 10^3/uL (130-450); RED BLOOD COUNT 4.33 10^6/uL (4.70-6.10); RED CELL DISTRIBUTION WIDTH 14.8 % (12.0-15.0); WHITE BLOOD COUNT 8.3 x10^3/uL (4.8-10.8)
[2022-10-27 11:07] LABS: CALCIUM 10.1 mg/dL (8.5-10.3); CREATININE 1.5 mg/dL (0.6-1.2); CRP - C-REACTIVE PROTEIN 1.9 mg/dL (0-1.0); POTASSIUM 3.9 mmol/L (3.5-5.0)
--- NOTE | 2022-10-27 18:04 | XRAY Report ---
PROCEDURE: Foot 3 View RT INDICATIONS: OPEN WOUND on second toe TECHNIQUE: 3 views of the foot were acquired. COMPARISON: None FINDINGS: Bones: No fractures or dislocations. No suspicious bony lesions. Polyarticular degenerative change s present Soft tissues: No tibiotalar joint effusion. Vascular calcifications present. IMPRESSION: No definite radiographic evidence of osteomyelitis identified. If symptoms persist, follow-up radiogr aphs and/or CT or MRI may be helpful for further evaluation. Reviewed by: Vinnie Davies MD on 10/27/2022 6:03 PM PST Approved by: Vinnie Davies MD on 10/27/2022 6:03 PM PST Station ID: [id number]
== END 2022-10-27 10:18 | disposition home or self-care (01) ==
LOC: LAB 10:17
PROVIDERS: ATTEND Internal Medicine
DX: E11.69 Type 2 diabetes mellitus with other specified complication (principal); S91.104A Unspecified open wound of right lesser toe(s) without damage to nail, initial encounter; L03.90 Cellulitis, unspecified
CPT/HCPCS: 36415; 80048; 85025; 85651; 86140

== ENCOUNTER 2022-12-13 12:20 | Outpatient (CLI) | payer MEDICARE ==
[2022-12-13 12:33] LABS: BASOPHILS # (AUTO) 0.1 10^3/uL (0.0-0.1); BASOPHILS % (AUTO) 0.8 %; EOSINOPHILS # (AUTO) 0.2 10^3/uL (0.0-0.7); EOSINOPHILS % (AUTO) 2.9 %; HCT - HEMATOCRIT 41.7 % (42.0-52.0); HGB - HEMOGLOBIN 13.8 g/dL (14.0-18.0); LYMPHOCYTES # (AUTO) 1.8 10^3/uL (1.5-3.5); LYMPHOCYTES % (AUTO) 23.7 %; MEAN CORPUSCULAR HEMOGLOBIN 31.6 pg (27.0-31.0); MEAN CORPUSCULAR HGB CONC 33.1 g/dL (32.0-36.0); MEAN CORPUSCULAR VOLUME 95.4 fL (80.0-94.0); MEAN PLATELET VOLUME 10.9 fL (7.4-11.4); MONOCYTES # (AUTO) 0.6 10^3/uL (0.0-1.0); MONOCYTES % (AUTO) 7.6 %; NEUTROPHILS # (AUTO) 4.9 10^3/uL (1.5-6.6); NEUTROPHILS % (AUTO) 64.6 %; PLT - PLATELET COUNT 183 10^3/uL (130-450); RED BLOOD COUNT 4.37 10^6/uL (4.70-6.10); RED CELL DISTRIBUTION WIDTH 15.4 % (12.0-15.0); WHITE BLOOD COUNT 7.6 x10^3/uL (4.8-10.8)
[2022-12-13 12:53] LABS: ALBUMIN 4.5 g/dL (3.2-5.5); ALBUMIN/GLOBULIN RATIO 1.6 (1.0-2.2); BILIRUBIN,TOTAL 0.8 mg/dL (0.2-1.0); CALCIUM 10.1 mg/dL (8.5-10.3); CREATININE 1.4 mg/dL (0.6-1.2); CRP - C-REACTIVE PROTEIN 1.3 mg/dL (0-1.0); POTASSIUM 3.5 mmol/L (3.5-5.0); TOTAL PROTEIN 7.4 g/dL (6.7-8.2)
== END 2022-12-13 12:21 | disposition home or self-care (01) ==
LOC: LAB 12:20
PROVIDERS: ATTEND Surgery
DX: E11.621 Type 2 diabetes mellitus with foot ulcer (principal)
CPT/HCPCS: 36415; 80053; 85025; 85651; 86140

== ENCOUNTER 2022-12-13 12:20 | Outpatient (CLI) | payer MEDICARE ==
[~2022-12-13 12:20] MED LIST: GADOBUTROL 10 MMOL/10 ML VIAL ONE
[2022-12-13] MEDS ORDERED: GADOBUTROL 10 MMOL/10 ML VIAL IVP ONE (13:29)
--- NOTE | 2022-12-13 21:08 | MRI Report ---
PROCEDURE: FOOT W/WO - RT INDICATIONS: NON HEALING ULCER CONTRAST: gadavist 9.9ml TECHNIQUE: Noncontrast sagittal T1 spin echo and T2 fast spin echo with fat saturation, long-axis T1 spin echo a nd T2 fast spin echo with fat saturation; short-axis T1 spin echo, proton density fast spin echo, and T2 fast spin echo with fat saturation through the forefoot. Post-contrast short axis, long axis, an d sagittal T1 spin echo with fat saturation through the forefoot. COMPARISON: Right foot radiograph dated 10/27/2022. FINDINGS: Image quality: Diagnostic. Patient motion is noted. Bones and joints: Midfoot and forefoot joint osteoarthritic changes are seen. No suspicious osseous enhancement. No bone marrow contusions or metatarsal stress fractures. No bony erosive changes or in traosseous lesions. Soft tissues: Ulceration involving plantar aspect of distal second toe is seen. Soft tissue edema and swelling with heterogeneous contrast enhancement is noted suggestive of cellulitis. No discrete drai nable abscess collection is seen. No suspicious soft tissue enhancement. The visualized plantar foot muscles demonstrate normal signal and bulk. Visualized flexor and extensor tendons appear intact, w ithout tenosynovitis. The distal insertions of the peroneus brevis and longus tendons appear intact. The principal Lisfranc ligament appears intact. IMPRESSION: 1. Ulceration involving plantar aspect of distal second toe with adjacent cellulitis. No discrete robert inable abscess collection. 2. Midfoot and forefoot joint osteoarthritis. No fracture or dislocation. No evidence of osteomyeliti s is seen. No bony erosive changes. 3. Forefoot tendons and ligaments are grossly intact. Reviewed by: Eddie Bertrand MD on 12/13/2022 9:07 PM PDT Approved by: Eddie Bertrand MD on 12/13/2022 9:07 PM PDT Station ID: [id number]
== END 2022-12-13 12:21 | disposition home or self-care (01) ==
LOC: DI 12:20
PROVIDERS: ATTEND Surgery
DX: E11.621 Type 2 diabetes mellitus with foot ulcer (principal); L03.031 Cellulitis of right toe; M19.071 Primary osteoarthritis, right ankle and foot
CPT/HCPCS: 73720; A9585

== ENCOUNTER 2023-02-02 09:12 | Outpatient (CLI) | payer MEDICARE ==
[2023-02-02 12:05] LABS: CREATININE 1.5 mg/dL (0.6-1.2)
[2023-02-02 12:18] LABS: ESTIMATED AVERAGE GLUCOSE 128 mg/dL (70-100); HEMOGLOBIN A1c% 6.1 % (4.27-6.07)
== END 2023-02-02 09:13 | disposition home or self-care (01) ==
LOC: LAB.N 09:12
PROVIDERS: ATTEND Internal Medicine
DX: E11.59 Type 2 diabetes mellitus with other circulatory complications (principal)
CPT/HCPCS: 36415; 80048; 83036

== ENCOUNTER 2023-04-27 12:18 | Outpatient (CLI) | payer MEDICARE ==
--- NOTE | 2023-04-28 11:28 | XRAY Report ---
PROCEDURE: Lumbar Spine 2 View INDICATIONS: STRAIN OF MUSCLE, FASCIA AND TENDON OF LOWER BACK, TECHNIQUE: 3 views of the lumbar spine were acquired. COMPARISON: None. FINDINGS: Bones: 5 [id number] vertebrae are present. There is multilevel trace retrolisthesis. Multileve l disc space narrowing is present most severe at L5-S1. Multilevel foraminal narrowing is most severe at L2-3, L3-4 and L5-S1. Multilevel anterior osteophytes are present most severe at L1-2. No vertebr al body compression fractures. No suspicious bony lesions. Partially visualized right hip arthropla sty. Soft tissues: Overlying bowel gas pattern is normal. No suspicious soft tissue calcifications. IMPRESSION: Multilevel degenerative changes with disc and foraminal narrowing most significant at L5 -S1. Reviewed by: Carla Chase MD on 04/28/2023 11:27 AM PDT Approved by: Carla Chase MD on 04/28/2023 11:27 AM PDT Station ID: [id number]
== END 2023-04-27 12:19 | disposition home or self-care (01) ==
LOC: DI 12:18
PROVIDERS: ATTEND Family Medicine
DX: S39.012D Strain of muscle, fascia and tendon of lower back, subsequent encounter (principal); M47.816 Spondylosis without myelopathy or radiculopathy, lumbar region; M47.817 Spondylosis without myelopathy or radiculopathy, lumbosacral region; M48.061 Spinal stenosis, lumbar region without neurogenic claudication; M48.07 Spinal stenosis, lumbosacral region

== ENCOUNTER 2023-06-23 09:30 | Outpatient (CLI) | payer MEDICARE ==
--- NOTE | 2023-06-23 13:26 | XRAY Report ---
PROCEDURE: Foot 3 View RT INDICATIONS: TOE PAIN,RIGHT TECHNIQUE: 3 views of the foot were acquired. COMPARISON: None. FINDINGS: Bones: No fractures or dislocations. No suspicious bony lesions. Mild first MTP degenerative tsang ge. Soft tissues: No suspicious soft tissue calcifications or masses. Small vessel calcifications sugg est probable long-standing diabetes. IMPRESSION: No acute bony abnormality. If pain persists with conservative management, consider repeat radiographs in 10-14 days or cross-sectional imaging. Reviewed by: Gamaliel Raygoza MD on 06/23/2023 1:25 PM PDT Approved by: Gamaliel Raygoza MD on 06/23/2023 1:25 PM PDT Station ID: [id number]
== END 2023-06-23 09:31 | disposition home or self-care (01) ==
LOC: DI 09:30 → LAB 09:31
PROVIDERS: ATTEND Internal Medicine
DX: Z01.812 Encounter for preprocedural laboratory examination (principal); M79.674 Pain in right toe(s)
CPT/HCPCS: 36415; 84550; 87640

== ENCOUNTER 2023-11-20 09:24 | Outpatient (CLI) | payer MEDICARE ==
[2023-11-20 11:59] LABS: BASOPHILS # (AUTO) 0.1 10^3/uL (0.0-0.1); EOSINOPHILS # (AUTO) 0.2 10^3/uL (0.0-0.7); HCT - HEMATOCRIT 43.1 % (42.0-52.0); HGB - HEMOGLOBIN 14.2 g/dL (14.0-18.0); LYMPHOCYTES # (AUTO) 1.7 10^3/uL (1.5-3.5); LYMPHOCYTES % (AUTO) 29.2 %; MEAN CORPUSCULAR HEMOGLOBIN 31.2 pg (27.0-31.0); MEAN CORPUSCULAR HGB CONC 32.9 g/dL (32.0-36.0); MEAN CORPUSCULAR VOLUME 94.7 fL (80.0-94.0); MEAN PLATELET VOLUME 11.3 fL (7.4-11.4); MONOCYTES # (AUTO) 0.6 10^3/uL (0.0-1.0); MONOCYTES % (AUTO) 9.9 %; NEUTROPHILS # (AUTO) 3.2 10^3/uL (1.5-6.6); NEUTROPHILS % (AUTO) 55.6 %; PLT - PLATELET COUNT 179 10^3/uL (130-450); RED BLOOD COUNT 4.55 10^6/uL (4.70-6.10); RED CELL DISTRIBUTION WIDTH 14.5 % (12.0-15.0); WHITE BLOOD COUNT 5.8 x10^3/uL (4.8-10.8)
[2023-11-20 12:25] LABS: ESTIMATED AVERAGE GLUCOSE 140 mg/dL (70-100); HEMOGLOBIN A1c% 6.5 % (4.27-6.07)
[2023-11-20 12:37] LABS: ALBUMIN 4.3 g/dL (3.2-5.5); ALBUMIN/GLOBULIN RATIO 1.5 (1.0-2.2); ALKALINE PHOSPHATASE 55 IU/L (42-121); ALT ALANINE AMINOTRANSFERASE 24 IU/L (10-60); AST ASPARTATE AMINOTRANSFERASE 22 IU/L (10-42); BILIRUBIN,TOTAL 0.5 mg/dL (0.2-1.0); BUN - BLOOD UREA NITROGEN 24 mg/dL (6-20); CALCIUM 10.5 mg/dL (8.5-10.3); CARBON DIOXIDE - CO2 28 mmol/L (21-32); CHLORIDE 103 mmol/L (101-111); CHOL/HDL RATIO 3.9 (<5.0); CHOLESTEROL 142 mg/dL; CREATININE 1.5 mg/dL (0.6-1.3); GFR - MDRD 45 (>89); GLUCOSE 163 mg/dL (74-104); HDL CHOLESTEROL 36 mg/dL; LDL CHOLESTEROL,CALCULATED 46 mg/dL; LDL/HDL RATIO 1.3 (<3.6); POTASSIUM 3.9 mmol/L (3.5-4.5); SODIUM 137 mmol/L (135-145); TOTAL PROTEIN 7.1 g/dL (6.4-8.9); TRIGLYCERIDES 302 mg/dL (48-352); VLDL CHOLESTEROL 60 mg/dL
[2023-11-20 12:55] LABS: CREATININE,URINE 73.8 mg/dL; MICROALBUM/CREATININE RATIO,UR 54.2 ug/mg (<30.0)
== END 2023-11-20 09:25 | disposition home or self-care (01) ==
LOC: LAB.N 09:24
PROVIDERS: ATTEND Internal Medicine
DX: E11.59 Type 2 diabetes mellitus with other circulatory complications (principal); R97.20 Elevated prostate specific antigen [PSA]; I10 Essential (primary) hypertension; E29.1 Testicular hypofunction
CPT/HCPCS: 36415; 80053; 80061; 82043; 82570; 83036; 83721; 84153; 84403; 85025

== ENCOUNTER 2023-11-22 14:01 | Outpatient (CLI) | payer MEDICARE ==
--- NOTE | 2023-11-22 19:16 | XRAY Report ---
PROCEDURE: Lumbar Spine 2-3V INDICATIONS: STRAIN OF MUSCLE, FASCIA, AND TENDON OF LOWER BACK TECHNIQUE: 2 views of the lumbar spine were acquired. COMPARISON: None. FINDINGS: Bones: 5 [id number]-[id number] vertebrae are present. There is normal bony alignment. No vertebral body compression fractures. No suspicious bony lesions. Advanced multilevel facet arthropathy. Suspect c anal stenosis. Soft tissues: Overlying bowel gas pattern is normal. No suspicious soft tissue calcifications. IMPRESSION: No acute bony abnormality. Advanced multilevel facet arthropathy. Suspect canal stenosis. Comment: Lumbar spine MRI may be helpful. Reviewed by: Gamaliel Raygoza MD on 11/22/2023 7:15 PM PDT Approved by: Gamaliel Raygoza MD on 11/22/2023 7:15 PM PDT Station ID: [id number]
== END 2023-11-22 14:02 | disposition home or self-care (01) ==
LOC: DI.N 14:01
PROVIDERS: ATTEND Physician Assistant Medical
DX: M47.816 Spondylosis without myelopathy or radiculopathy, lumbar region (principal)

== ENCOUNTER 2024-03-15 09:49 | Outpatient (CLI) | payer MEDICARE ==
[2024-03-15 19:24] LABS: ALBUMIN 4.5 g/dL (3.2-5.5); ALBUMIN/GLOBULIN RATIO 1.8 (1.0-2.2); BILIRUBIN,TOTAL 0.6 mg/dL (0.2-1.0); CALCIUM 10.1 mg/dL (8.5-10.3); CREATININE 1.3 mg/dL (0.6-1.3); POTASSIUM 4.4 mmol/L (3.5-4.5)
[2024-03-15 20:30] LABS: ESTIMATED AVERAGE GLUCOSE 123 mg/dL (70-100); HEMOGLOBIN A1c% 5.9 % (4.27-6.07)
== END 2024-03-15 09:50 | disposition home or self-care (01) ==
LOC: LAB.N 09:49
PROVIDERS: ATTEND Internal Medicine
DX: E11.59 Type 2 diabetes mellitus with other circulatory complications (principal)
CPT/HCPCS: 36415; 80053; 83036

== ENCOUNTER 2024-04-30 08:00 | Outpatient (CLI) | payer MEDICARE | END 2024-04-30 23:59 | disposition home or self-care (01) | LOC: LAB.N 08:00 | PROVIDERS: ATTEND Physician Assistant | DX: U07.1 COVID-19 (principal) ==

== ENCOUNTER 2024-04-30 10:01 | Outpatient (CLI) | payer MEDICARE ==
--- NOTE | 2024-04-30 10:33 | Sleep Patient Instructions ---
Sleep Center Visit Summary - Patient Visit Information Reason for Visit: Annual follow-up - Patient Instructions Additional Instructions: You will continue with CPAP therapy with pressure set at 7 cmH2O. A supply prescription will be updated with your DME supplier. Please follow up with the sleep care office in 1 year. - Clinic Information Contact: [facility] [address] [place] [address] [email or web address] T: [phone]
--- NOTE | 2024-04-30 10:39 | SLEEP CARE CONSULTATION ---
Information from patient questionnaire entered by Moi Collins. I have reviewed and concur with the information entered by Moi Collins. This document represents the service I personally performed and the decisions made by , Gayle Ma ARNP. History of Present Illness Service Date and Time: 04/30/2024 1001 Previous diagnosis: Mild, Obstructive Sleep Apnea-Hypopnea Syndrome AHI: 11.7 (in 2012) Reason for follow up: annual (Annual - Last seen 02/2023) Equipment type: CPAP ([employer] Dreamstation 2; s/u 2020) Equipment obtained from: [employer] (getting supplies as needed) Mask style: Nasal (over the nose) Backup mask available: Yes Last cushion change: 2-3 months ago [facility]: Yes [facility] Type of Sleep Study: Polysomnography HPI additional information: MARYANNE ROTHMAN was diagnosed to have mild, AHI 7.7, obstructive sleep apnea- hypopnea syndrome and returned today for CPAP therapy annual follow-up. Sleep Study - Results Type of Sleep Study: Polysomnography Prior sleep studies: Yes [facility] Compliance Data - Data Reviewed with Patient Average duration of nightly device use: 8 h 4 min Compliance rate %: 99.4 (179/180 days used) Current pressure setting (cmH2O): 7 Humidity settin Heated hose settin Average residual AHI: 1.0 Central apnea: 0.1 Obstructive apnea: 0 Hypopnea: 0.9 Average large leak: 1 sec Subjective Patient concerns: reports: dry mouth, nose, throat (dry mouth, takes ACT lozenges to help with dryness). denies: aerophagia, mask discomfort, air blowing in eyes, mask leak noise, condensation in mask/hose, nasal congestion, epistaxis Observed to snore while using device: No Current pressure setting perceived as: comfortable On therapy, patient: reports: sleeping better, being more awake and alert during the day, more rested overall. denies: drowsiness while driving Initial [place] Sleepiness Scale score: 8 (in 2012) Current [place] Sleepiness Scale score: 8 (04/30/24) Allergies and Home Medications Known drug allergies: No Drug allergies reviewed: Yes Home medication list reviewed: Yes (no changes, updated in EMR) Allergy and home medication list: Allergies No Known Drug Allergies Allergy Review of Systems Review of systems same as previous: Yes (no changes) Physical Exam Vital signs obtained and entered by: Gayle James NP Blood Pressure: 141/64 Cuff size: long (right arm) Heart Rate: 73 O2 Saturation: 97 Height: 5 ft 10 in Weight: 226 lb 6.4 oz Body Mass Index: 32.5 BMI Classification: Obese Impression and Plan 1. Obstructive Sleep Apnea-Hypopnea Syndrome, mild, with good treatment compliance and good apnea control. On CPAP therapy, the patient has better sleep quality and is more rested overall. Patient has significant improvement of their sleep apnea and is satisfied with current CPAP therapy. He states he gets dry mouth but this is even during the day and his doctor told him that it was because of his blood pressure medication. Patient's apnea severity and rationale for treatment to reduce apnea, improve sleep quality and reduce cardiovascular and cerebrovascular events was reviewed. I also reviewed the benefit of consistent device use of CPAP for hypertension, diabetes. 2. Obesity, unspecified. Currently patients BMI is 32.5. Obesity increases the risk of apnea, CPAP pressure requirements and overall health risks especially cardiovascular and diabetes. Thus patient is advised to lose weight. * Continue CPAP pressure at 7 cmH2O * Update supply prescription. * Notify me if snoring with mask or feeling that the pressure is too much or too little * Attempt to lose weight * Call this office if any problems using CPAP * Return for follow up in 12 months, or sooner if concerns arise Counseling Topics: Spare mask, Weight loss health impact Prescriptions: Device supplies Follow up with Sleep Care in: 1 year Visit Type: In Office Time Spent with Patient (minutes): 22 Provider Statement: I spent 100% of the Face to Face Visit with the patient with greater than 50% spent counseling the patient and coordination of care.
[2024-04-30 10:41] VITALS: BP 141/64; O2SAT 97
== END 2024-04-30 10:02 | disposition home or self-care (01) ==
LOC: SC 10:01
PROVIDERS: ATTEND Nurse Practitioner Family
DX: G47.33 Obstructive sleep apnea (adult) (pediatric) (principal); E66.9 Obesity, unspecified; Z68.32 Body mass index [BMI] 32.0-32.9, adult
CPT/HCPCS: 99213; G0463; 99212